=== PATIENT | female | born 1965 | race Caucasian/White ===

== ENCOUNTER → 2016-07-08 | Outpatient (CLI) | payer MEDICARE, MEDICAID ==
[~2016-07-08] MED LIST: ALPR0.5T72 PO; ASP81TEC PO; CATHETER FLUSH 10 ML SYR IV PRN; CYCL10TA9 PO; DIPH1TAB45 PO; HYDR-2997 PO; HYDR-707 PO; LOXA10CA6 PO; MELO-195 PO; METH4TAB PO; NF-SOLIF5T PO; NITR-65 PO; ONDAN4ODT PO; PANT40TA2 PO; PHEN37.555 PO; PHENTERMINE; POTA99TA7 PO; PROP-33; REGADENOSON 0.4 MG/5 ML SYR (LEXISCAN) IV ONE
[2016-07-08 09:25] VITALS: BP 139/62
[2016-07-08 09:32] VITALS: BP 162/77
[2016-07-08 09:34] VITALS: BP 160/78
--- NOTE | 2016-07-09 11:20 | STRESS TEST ---
PROCEDURE PHYSICIAN: MILTON MEEHAN DATE OF PROCEDURE: 07/08/2016 LEXISCAN MYOVIEW STRESS TEST REPORT: INDICATION FOR THE PROCEDURE: Chest pain. BASELINE HEART RATE: 82 BASELINE BLOOD PRESSURE: 139/62 BASELINE EKG: Sinus rhythm with no ischemic changes. IN SUMMARY: The patient was injected with 10.86 mCi of technetium 99 Myoview and the resting images were obtained. Then the patient received 0.4 mg of Lexiscan followed by 27 mCi of technetium 99 Myoview. Throughout the test, there were no EKG changes. The resting and stress images were reviewed and compared in the short axis, horizontal long axis, and vertical long axis views. Review of the images showed breast attenuation affecting the quality of the images. No significant ischemia or infarction was seen. SSS is 3, SDS 2, TID value 1.02. On the gated images, the left ventricle appeared to be normal size with normal contractility. Calculated ejection fraction 66%. IN CONCLUSION: 1. The patient tolerated Lexiscan well. 2. Breast attenuation affecting the quality of the images with no significant ischemia or infarction on SPECT images. 3. Normal left ventricular size with normal contractility. Calculated ejection fraction 66%. Job ID: [id number] Dictated Date: 07/08/2016 17:22:52 Mower Sharpener Date: 07/09/2016 11:17:07 / eli
== END ==
LOC: CARD 07:49
PROVIDERS: ATTEND Internal Medicine Cardiovascular Disease
DX: R07.9 Chest pain, unspecified (principal); R06.09 Other forms of dyspnea; I10 Essential (primary) hypertension; E66.9 Obesity, unspecified
CPT/HCPCS: 78452; 93017

== ENCOUNTER → 2017-07-24 | Outpatient (CLI) | payer MEDICARE ==
[~2017-07-24] MED LIST changes: -CATHETER FLUSH 10 ML SYR IV PRN; -REGADENOSON 0.4 MG/5 ML SYR (LEXISCAN) IV ONE
[2017-07-24 12:18] LABS: ALANINE AMINOTRANSFERASE 19 U/L (0-55); ALBUMIN 3.6 GM/DL (3.2-4.5); ALKALINE PHOSPHATASE 53 U/L (40-136); BILIRUBIN,TOTAL 0.4 MG/DL (0.1-1.0); BUN/CREATININE RATIO 18; CARBON DIOXIDE 28 MMOL/L (21-32); CHLORIDE 105 MMOL/L (98-107); CHOLESTEROL 148 MG/DL (< 200); CREATININE SERUM 0.73 MG/DL (0.60-1.30); GFR ESTIMATED > 60; GLUCOSE 87 MG/DL (70-105); HDL CHOLESTEROL 51 MG/DL (40-60); POTASSIUM 4.2 MMOL/L (3.6-5.0); SODIUM 135 MMOL/L (135-145); TOTAL PROTEIN 7.2 GM/DL (6.4-8.2); TRIGLYCERIDES 73 MG/DL (<150); VLDL CHOLESTEROL 15 MG/DL (5-40)
== END ==
LOC: LAB 11:38
PROVIDERS: ATTEND Physician Assistant
DX: R07.89 Other chest pain (principal); R06.09 Other forms of dyspnea; I10 Essential (primary) hypertension; E66.9 Obesity, unspecified
CPT/HCPCS: 36415; 80053; 80061

== ENCOUNTER → 2020-08-01 | Outpatient (CLI) | payer MEDICARE ==
--- NOTE | 2020-08-01 16:46 | Diagnostic Imaging Report ---
INDICATION: Right knee pain for 3 days. TIME OF EXAM: 2:55 PM Three views of the right knee were obtained. There is tricompartmental degenerative change with joint space narrowing and marginal spurring, most marked involving the patellofemoral joint. No fractures are identified. There is some chondrocalcinosis of the medial compartment. There is a subchondral cyst in the proximal tibia which may be degenerative. There is a joint effusion present. No fractures are seen. IMPRESSION: Degenerative changes and joint effusion. No acute bony abnormality is detected. Dictated by: Dictated on workstation # [id number]
== END ==
LOC: RAD FS 14:35
PROVIDERS: ATTEND Family Medicine
DX: M17.11 Unilateral primary osteoarthritis, right knee (principal)
CPT/HCPCS: 73562

== ENCOUNTER → 2021-02-12 | Outpatient (CLI) | payer MEDICARE | LOC: CARD 08:39 | PROVIDERS: ATTEND Internal Medicine Cardiovascular Disease | DX: I07.1 Rheumatic tricuspid insufficiency (principal); I11.9 Hypertensive heart disease without heart failure; I25.10 Atherosclerotic heart disease of native coronary artery without angina pectoris | CPT/HCPCS: 93306 ==

== ENCOUNTER → 2021-02-14 | Outpatient (CLI) | payer MEDICARE ==
[~2021-02-14] VITALS: Ht 170 cm; Wt 109.0 kg
[~2021-02-14] MED LIST changes: +CATHETER FLUSH 10 ML SYR IV PRN; +REGADENOSON 0.4 MG/5 ML SYR (LEXISCAN) IV ONE
[2021-02-14 09:05] VITALS: BP 151/73
--- NOTE | 2021-02-14 12:09 | Cardiology Stress Test Report ---
Stress Test Report Date of Procedure/Referring: Date of Procedure: Feb 14, 2021 PCP Milton Mckeon MD Admitting Physician Epifanio Larson MD Indications: HTN Baseline Heart Rate: 77 Baseline Blood Pressure: Blood Pressure Systolic: 151 Blood Pressure Diastolic: 73 Baseline Vitals Vital Signs Date Time Temp Pulse Resp B/P (MAP) Pulse Ox O2 Delivery O2 Flow Rate FiO2 02/14/21 09:05 77 151/73 (99) 99 Baseline EKG: Baseline EKG: NSR Summary After explaining the procedure to the patient, she signed a consent and then brought to the stress nuclear laboratory. Patient received 0.4 mg Lexiscan for stress test, ECG, heart rate and blood pressure were monitored continuously. Resting and stress dose of radio tracer were injected, imaging was acquired and reviewed in short axis, horizontal long axis and vertical long axis views. TID: 1.03 SSS: 0 SDS: 0 EF: 55 1. Patient tolerated Lexiscan well 2. Breast attenuation affecting the quality of the images, there is decreased uptake involving the whole anterior wall anterior apex with mild reversibility, stress score is 0. Questionable ischemia involving the anterior wall and anterior apex 3. Normal left ventricular size, ejection fraction 55% MILTON MCKEON MD Feb 14, 2021 12:09
== END ==
LOC: CARD 08:00
PROVIDERS: ATTEND Internal Medicine Cardiovascular Disease
DX: I10 Essential (primary) hypertension (principal); I25.10 Atherosclerotic heart disease of native coronary artery without angina pectoris
CPT/HCPCS: 78452; 93017; A9502

== ENCOUNTER 2021-02-21 06:52 | Day surgery (SDC) | payer MEDICARE ==
[~2021-02-21] VITALS: Ht 170 cm; Wt 107.0 kg
[2021-02-21] VITALS (12 sets, daily range): BP systolic 130–160; BP diastolic 79–98
[~2021-02-21 06:52] MED LIST changes: -CATHETER FLUSH 10 ML SYR IV PRN; -REGADENOSON 0.4 MG/5 ML SYR (LEXISCAN) IV ONE
[2021-02-21] MEDS ORDERED: LIDOCAINE 1% INJ 20 ML 20 ML VIAL ONE (07:06)
[2021-02-21] MEDS ORDERED: HEParin (CATH LAB) 2,000 ML IV ONE (07:07)
[2021-02-21] MEDS ORDERED: NS IV 1000 ML 1,000 ML ONE (07:07)
[2021-02-21] MEDS ORDERED: NS IV 1000 ML 1,000 ML IV SCH ×2 (07:15→09:00)
[2021-02-21] MEDS ORDERED: fentaNYL INJ 100 MCG/2 ML AMP ONE ×2 (07:34→11:34)
[2021-02-21] MEDS ORDERED: MIDAZOLAM 5 MG/5 ML (VERSED) VIAL ONE (07:34)
[2021-02-21 07:39] LABS: HEMATOCRIT 42 % (35-52); HEMOGLOBIN 13.4 g/dL (11.5-16.0); MEAN CORPUSCULAR HEMOGLOBIN 30 pg (25-34); MEAN CORPUSCULAR HGB CONC 32 g/dL (32-36); MEAN CORPUSCULAR VOLUME 93 fL (80-99); MEAN PLATELET VOLUME 10.9 fL (9.0-12.2); PLATELET COUNT 304 10^3/uL (130-400); WHITE BLOOD COUNT 6.5 10^3/uL (4.3-11.0)
[2021-02-21] MEDS ORDERED: TRAM50TA3 PO (07:39)
[2021-02-21] MEDS ORDERED: MULT-1136 PO (07:39)
[2021-02-21] MEDS ORDERED: LISI10TA25 PO (07:39)
[2021-02-21] MEDS ORDERED: ASPI-1238 PO (07:39)
[2021-02-21] MEDS ORDERED: PANT40TA52 PO (07:39)
[2021-02-21] MEDS ORDERED: CYCL10TA9 PO (07:39)
[2021-02-21] MEDS ORDERED: IBUP-1780 PO (07:39)
[2021-02-21] MEDS ORDERED: ACET325T38 PO (07:39)
[2021-02-21 07:44] LABS: BILIRUBIN,URINE NEGATIVE (NEGATIVE); CLARITY,URINE CLEAR; COLOR,URINE YELLOW; GLUCOSE, URINE (UA) NEGATIVE (NEGATIVE); KETONES,URINE NEGATIVE (NEGATIVE); LEUKOCYTE ESTERASE ,URINE NEGATIVE (NEGATIVE); NITRITE,URINE NEGATIVE (NEGATIVE); PROTEIN,URINE NEGATIVE (NEGATIVE)
[2021-02-21 07:47] LABS: RBC,URINE 0-2 /HPF; WBC,URINE 0-2 /HPF
[2021-02-21 07:48] LABS: AMORPHOUS SEDIMENT,UR RARE AMOR URATES /LPF; BACTERIA,URINE NEGATIVE /HPF; SQUAMOUS EPITHELIAL CELL,UR 0-2 /HPF
--- NOTE | 2021-02-21 07:49 | Diagnostic Imaging Report ---
Indication: Chest pain with abnormal stress test. Comparison with 07/08/2012. FINDINGS: Portable chest show the lungs to be well-aerated and clear. No pneumothorax or pleural effusion. No bony abnormalities. IMPRESSION: Normal portable chest. Dictated by: Dictated on workstation # [id number]
[2021-02-21 07:56] LABS: INR 0.9 (0.8-1.4)
[2021-02-21 08:00] LABS: ALBUMIN 3.6 GM/DL (3.2-4.5); BILIRUBIN,TOTAL 0.3 MG/DL (0.1-1.0); CALCIUM 9.2 MG/DL (8.5-10.1); CREATININE SERUM 0.73 MG/DL (0.60-1.30); POTASSIUM 3.6 MMOL/L (3.6-5.0); TOTAL PROTEIN 7.6 GM/DL (6.4-8.2)
--- NOTE | 2021-02-21 08:56 | Conscious Sedation/ASA ---
Conscious Sedation Pre-Proced Time 08:00 ASA Score 3 For ASA 3 and 4: Consider anesthesia and medical clearance. Also, for patients with a history of failed moderate sedation consider anesthesia. Airway Lungs Heart ASA score ASA 1: a normal healthy patient ASA 2: a patient with a mild systemic disease (mid diabetes, controlled hypertension, obesity x ASA 3: a patient with a severe systemic disease that limits activity (angina, COPD, prior Myocardial infarction) ASA 4: a patient with an incapacitating disease that is a constant threat to life (CHF, renal failure) ASA 5: a moribund patient not expected to survive 24 hrs. (ruptured aneurysm) ASA 6: a declared brain- patient whose organs are being harvested. For emergent operations, add the letter E after the classification Mallampati Classification Grade 3 Sedation Plan Analgesia, Amnesia, Plan communicated to team members, Discussed options with patient/fam, Discussed risks with patient/fam The patient is an appropriate candidate to undergo the planned procedure, sedation, and anesthesia. The patient immediately re-assessed prior to indication. MILTON MEEHAN MD Feb 21, 2021 08:56
--- NOTE | 2021-02-21 08:58 | Discharge Inst-Post CATH ---
Discharge Inst-CATH/EP Problems Reviewed?: Yes Post Cardiac Cath/EP D/C Inst Follow Up/Plan Appointment with Dr. Mckeno's office in 2 to 4 weeks <b>CARDIAC CATH/EP PROCEDURE DISCHARGE INSTRUCTIONS</b> ACTIVITY * Go Home directly and rest. * Limit activity of the leg (or wrist if it was used) for 7 days including aer obics, swimming, jogging, bicycling, etc. * Restrict stair-climbing for 7 days if possible, if not, climb up with your non-cath leg, then bring together on the same step. * Avoid lifting, pushing, pulling or excessive movement of the affected extremi ty for 7 days. * Customary sexual activity may be resumed after 2 days-use caution not to use a position that strains or causes pain to the affected extremity. * No driving for 24 hours. * NO SMOKING. * Avoid straining for bowel movements for 7 days. * Gentle walking on level ground is allowed. * Returning to work will depend on the type of procedure and the results. Your doctor will discuss this with you. CALL YOUR DOCTOR FOR ANY OF THE FOLLOWING: *If bleeding from the puncture site occurs- Apply gentle pressure to site with clean cloth and call your doctor or EMS. * If a knot or lump forms under the skin, increases in size, or causes pain. * If bruising appears to be worsening or moving further down your leg instead of disappearing. * Temperature above 101 F. CARE OF YOUR GROIN INCISION; * Bruising or purple discoloration of the skin near the puncture site is common. * You may shower only, no bathtub bathing for 5 days. Be careful to avoid slipping as your leg may feel stiff. * If a closure device was used on your femoral artery, please see the attached guide regarding care of the device and your leg. * Leave dressing on FOR 24 hours. CARE OF YOUR WRIST INCISION; * Bruising or purple discoloration of the skin near the puncture site is common. * You may shower. * DO NOT submerge wrist. * Leave dressing on FOR 24 hours. MILTON MCKEON MD Feb 21, 2021 08:58
[2021-02-21] MEDS ORDERED: PATIENT MAY USE OWN MEDS, ALL PO SCH (09:00)
--- NOTE | 2021-02-21 09:19 | Cardiac Cath Report ---
Cardiac Cath Report Physician (s)/Sap Payroll Consultant (s) Physician MILTON MEEHAN MD Pre-Procedure Diagnosis Pre-Procedure Diagnosis: Coronary artery disease Post-Procedure Note Procedure Start Date: Feb 21, 2021 Name of Procedure: Left heart catheterization Findings/Procedure Note PROCEDURE NOTE: 55-year-old lady with hypertension, hyperlipidemia, had an abnormal stress test, scheduled for cardiac catheterization possible PTCA. After explaining the procedure to the patient, all pros and cons were explained, all questions were answered. The patient signed the consent and then she was placed on the cardiac catheterization laboratory. Groin was prepped SL fashion local anesthesia was used. Sheath placed in the Rt Femoral artery. Shelli right and left catheter were used to access the coronary system. JR catheter was advanced to the left ventricular cavity, pressure was measured, no left ventriculogram was done At the end of the procedure the sheath was removed. Closure device was deployed FINDINGS: Hemodynamics LV 144/15, end-diastolic pressure of 15 Aorta 142/73 mean of 101 ANATOMY: Left Main is free of obstructive disease Left Anterior Descending is mildly tortuous with mild disease nonobstructive disease Left Circumflex is slightly tortuous with mild disease nonobstructive disease Right Coronary Artery has mild disease at the midportion nonobstructive disease LV Gram was not done, pressure was measured CONCLUSION: 1. Mild coronary artery disease nonobstructive disease 2. Normal left ventricular end-diastolic pressure DISCUSSION AND RECOMMENDATION: Patient had an abnormal stress test probably due to extracardiac attenuation, mild coronary artery disease per cardiac catheterization, medical therapy is recommended no intervention is needed Anesthesia Type: Conscious Sedation Estimated blood loss (mL): 15 ml Contrast Amount: 28 ml Total Radiation Dose: 358 mGy Post-Procedure Diagnosis Post-operative diagnosis: Chest pain Coronary artery disease Hypertension Hyperlipidemia MILTON MEEHAN MD Feb 21, 2021 09:19
[2021-02-21] MEDS ORDERED: fentaNYL INJ 100 MCG/2 ML AMP IVP PRN (11:30)
== END 2021-02-21 13:35 | disposition home or self-care (01) ==
LOC: CATH 06:52 → SDC 09:15 → CATH 13:35
PROVIDERS: ATTEND Internal Medicine Cardiovascular Disease
DX: I25.10 Atherosclerotic heart disease of native coronary artery without angina pectoris (principal); I10 Essential (primary) hypertension; E78.2 Mixed hyperlipidemia; E66.9 Obesity, unspecified; I65.23 Occlusion and stenosis of bilateral carotid arteries; M19.90 Unspecified osteoarthritis, unspecified site; I07.1 Rheumatic tricuspid insufficiency; R06.83 Snoring; Z79.82 Long term (current) use of aspirin; Z68.37 Body mass index [BMI] 37.0-37.9, adult
CPT/HCPCS: 71045; 80053; 80061; 81000; 85027; 85610; 85730; 87081; 93458; C1760; C1894; 36415

== ENCOUNTER 2021-02-23 12:12 | Emergency (ER) | payer MEDICARE ==
[~2021-02-23] VITALS: Ht 170.2 cm; Wt 107.5 kg
[~2021-02-23 12:12] MED LIST changes: +ACET325T38 PO; +ASPI-1238 PO; +IBUP-1780 PO; +LISI10TA25 PO; +MULT-1136 PO; +PANT40TA52 PO; +TRAM50TA3 PO
--- NOTE | 2021-02-23 13:00 | ED Cardiac General ---
History of Present Illness General Stated Complaint: LEG PAIN AFTER HEART CATH Source: patient Exam Limitations: no limitations History of Present Illness Date Seen by Provider: Feb 23, 2021 Time Seen by Provider: 12:45 Initial Comments Patient to the ER by private conveyance with her significant other and chief complaint that she had a heart cath [address] Mckeon in her right femoral and she has had increasing swelling and pain. She says she had a heart cath 8 years ago that was noninterventional and did not have near as much trouble with it. She says she is never had such pain in her life. She took tramadol and Tylenol which brought the edge off of her pain. She has been getting around taking care of her self. She is on aspirin but no blood thinners. She says this heart cath was not interventional. She is not on blood thinners. She feels pain swelling in her right inner thigh as well as some intermittent tingling and numbness just distal to that in her right leg. She has not removed the dressing yet. No discharge from the wound, fever, chills, nausea, chest pain, shortness of air Allergies and Home Medications Allergies Coded Allergies: No Known Drug Allergies (Unverified , 10/10/08) Patient Home Medication List Home Medication List Reviewed: Yes Acetaminophen (Tylenol) 325 Mg Tablet, 650 MG PO Q6H PRN for PAIN-MILD (1-4), (Reported) Entered as Reported by: MUMTAZ JACK on 02/21/21738 Aspirin (Aspirin EC) 81 Mg Tablet.dr, 81 MG PO DAILY, (Reported) Entered as Reported by: MUMTAZ JACK on 02/21/21738 Cyclobenzaprine HCl (Cyclobenzaprine HCl) 10 Mg Tablet, 10 MG PO HS PRN for MUSCLE SPASMS, (Reported) Entered as Reported by: MUMTAZ JACK on 02/21/21738 Ibuprofen (Ibuprofen) 800 Mg Tablet, 800 MG PO Q8H PRN for PAIN-MILD, (Reported) Entered as Reported by: MUMTAZ JACK on 02/21/21738 Lisinopril (Lisinopril) 10 Mg Tablet, 10 MG PO DAILY, (Reported) Entered as Reported by: MUMTAZ JACK on 02/21/21738 Multivitamin (Multivitamin) 1 Each Tablet, 1 EACH PO DAILY, (Reported) Entered as Reported by: MUMTAZ JACK on 02/21/2139 Pantoprazole Sodium (Pantoprazole Sodium) 40 Mg Tablet.dr, 40 MG PO DAILY, ( Reported) Entered as Reported by: MUMTAZ JACK on 02/21/21 0739 Tramadol HCl (Tramadol HCl) 50 Mg Tablet, 50 MG PO QID, (Reported) Entered as Reported by: MUMTAZ JACK on 02/21/21738 Discontinued Medications Alprazolam (Alprazolam) 0.5 Mg Tab.rapdis, 0.5 MG PO DAILY, (Reported) Discontinued Reason: No Longer Taking Entered as Reported by: ONIEL MYRICK on 03/30/09 1910 Aspirin (Aspirin Ec 81 Mg) 81 Mg Tabec, 81 MG PO DAILY, (Reported) Discontinued Reason: No Longer Taking Entered as Reported by: RAMANDEEP AGUILAR on 07/08/12 1531 Cyclobenzaprine Hcl (Cyclobenzaprine Hcl) 10 Mg Tablet, 10 MG PO DAILY, (Report ed) Discontinued Reason: No Longer Taking Entered as Reported by: KEHINDE ROBERTS on 05/26/11 1547 Hydrocodone Bit/Acetaminophen (Lortab 7.5/500 Tablet) 1 Tab Tablet, 1 TAB PO TID, (Reported) Discontinued Reason: No Longer Taking Entered as Reported by: RAMANDEEP AGUILAR on 07/08/12 1532 Meloxicam (Meloxicam) 15 Mg Tablet, 15 MG PO DAILY, (Reported) Discontinued Reason: No Longer Taking Entered as Reported by: CORRINE CALABRESE on 07/08/12 1039 Pantoprazole Sodium (Protonix) 40 Mg Tablet.dr, 40 MG PO DAILY, (Reported) Discontinued Reason: No Longer Taking Entered as Reported by: ADILSON ATKINS on 04/25/15 1519 Solifenacin Succinate (Vesicare) 5 Mg Tablet, Unknown Dose PO, (Reported) Discontinued Reason: No Longer Taking Entered as Reported by: ADILSON ATKINS on 04/25/15 1519 Review of Systems Review of Systems Constitutional: No chills, No fever EENTM: No Blurred Vision, No Double Vision Respiratory: Denies Cough, Denies Shortness of Air Cardiovascular: Denies Chest Pain, Denies Lightheadedness Gastrointestinal: Denies Constipated, Denies Diarrhea, Denies Nausea Genitourinary: Denies Discharge, Denies Drainage Musculoskeletal: No back pain, No joint pain Psychiatric/Neurological: Denies Anxiety, Denies Depressed All Other Systems Reviewed Negative Unless Noted: Yes Past Gsjfbtf-Ktyuzd-Dfvcii Hx Patient Social History Tobacco Use?: No Use of E-Cig and/or Vaping dev: No Substance use?: No Alcohol Use?: No Immunizations Up To Date Tetanus Booster (TDap): Unknown Seasonal Allergies Seasonal Allergies: No Past Medical History Section, Gallbladder, Orthopedic Reproductive Disorders: No Diverticulosis Arthritis, Chronic Back Pain Anxiety Physical Exam Vital Signs Vital Signs - First Documented 02/23/21 12:46 Temp 36.5 Pulse 67 Resp 26 B/P (MAP) 136/81 (99) Pulse Ox 98 O2 Delivery Room Air Capillary Refill : Height, Weight, BMI Height: 5'7" Weight: 230lbs. oz. 104.998653sb; 37.02 BMI Method:Stated General Appearance: Anxious, Moderate Distress, Obese HEENT: PERRL/EOMI, Pharynx Normal, Moist Mucous Membranes Neck: Full Range of Motion, Normal Inspection Respiratory: No Accessory Muscle Use, No Respiratory Distress Cardiovascular: Regular Rate, Rhythm, No Edema, Normal Peripheral Pulses Gastrointestinal: Non Tender, Soft Extremity: Normal Capillary Refill, No Pedal Edema, Other (Right proximal thigh and groin with ecchymoses, no induration erythema or discharge. The wound is dry clean and dressed. There is a mild amount of swelling right compared to left thigh.) Neurologic/Psychiatric: Alert, Oriented x3, No Motor/Sensory Deficits Skin: Ecchymosis Progress/Results/Core Measures Results/Orders Lab Results Laboratory Tests Test 02/23/21 13:03 02/23/21 14:09 Range/Units White Blood Count 9.4 4.3-11.0 10^3/uL Red Blood Count 3.98 3.80-5.11 10^6/uL Hemoglobin 11.7 11.5-16.0 g/dL Hematocrit 36 35-52 % Mean Corpuscular Volume 91 80-99 fL Mean Corpuscular Hemoglobin 29 25-34 pg Mean Corpuscular Hemoglobin Concent 32 32-36 g/dL Red Cell Distribution Width 13.6 10.0-14.5 % Platelet Count 280 130-400 10^3/uL Mean Platelet Volume 11.0 9.0-12.2 fL Immature Granulocyte % (Auto) 0 % Neutrophils (%) (Auto) 74 42-75 % Lymphocytes (%) (Auto) 18 12-44 % Monocytes (%) (Auto) 7 0-12 % Eosinophils (%) (Auto) 0 0-10 % Basophils (%) (Auto) 1 0-10 % Neutrophils # (Auto) 7.0 1.8-7.8 10^3/uL Lymphocytes # (Auto) 1.7 1.0-4.0 10^3/uL Monocytes # (Auto) 0.6 0.0-1.0 10^3/uL Eosinophils # (Auto) 0.0 0.0-0.3 10^3/uL Basophils # (Auto) 0.1 0.0-0.1 10^3/uL Immature Granulocyte # (Auto) 0.0 0.0-0.1 10^3/uL Sodium Level 139 135-145 MMOL/L Potassium Level 3.3 L 3.6-5.0 MMOL/L Chloride Level 104 98-107 MMOL/L Carbon Dioxide Level 25 21-32 MMOL/L Anion Gap 10 5-14 MMOL/L Blood Urea Nitrogen 8 7-18 MG/DL Creatinine 0.69 0.60-1.30 MG/DL Estimat Glomerular Filtration Rate 89 BUN/Creatinine Ratio 12 Glucose Level 98 70-105 MG/DL Calcium Level 8.8 8.5-10.1 MG/DL Corrected Calcium 9.1 8.5-10.1 MG/DL Total Bilirubin 0.6 0.1-1.0 MG/DL Aspartate Amino Transf (AST/SGOT) 24 5-34 U/L Alanine Aminotransferase (ALT/SGPT) 23 0-55 U/L Alkaline Phosphatase 80 40-136 U/L C-Reactive Protein High Sensitivity 1.88 H 0.00-0.50 MG/DL Total Protein 7.2 6.4-8.2 GM/DL Albumin 3.6 3.2-4.5 GM/DL Urine Color YELLOW Urine Clarity CLEAR Urine pH 6.5 5-9 Urine Specific [place] 1.010 L 1.016-1.022 Urine Protein NEGATIVE NEGATIVE Urine Glucose (UA) NEGATIVE NEGATIVE Urine Ketones 1+ H NEGATIVE Urine Nitrite NEGATIVE NEGATIVE Urine Bilirubin NEGATIVE NEGATIVE Urine Urobilinogen 0.2 < = 1.0 MG/DL Urine Leukocyte Esterase NEGATIVE NEGATIVE Urine RBC (Auto) NEGATIVE NEGATIVE Urine RBC NONE /HPF Urine WBC NONE /HPF Urine Squamous Epithelial Cells 0-2 /HPF Urine Crystals NONE /LPF Urine Bacteria NEGATIVE /HPF Urine Casts NONE /LPF Urine Mucus NEGATIVE /LPF Urine Culture Indicated NO My Orders Orders - CAIT CABALLERO Cbc With Automated Diff (02/23/21 12:56) Comprehensive Metabolic Panel (02/23/21 12:56) Hs C Reactive Protein (02/23/21 12:56) Ua Culture If Indicated (02/23/21 12:56) Ed Iv/Invasive Line Start (02/23/21 12:56) Us Right Low Ext [id number] (02/23/21 13:01) Ed Iv/Invasive Line Start (02/23/21 13:01) Us Right Low Ext [id number] (02/23/21 ) Ed Iv/Invasive Line Start (02/23/21 15:43) Fentanyl Inj (Sublimaze Injection) (02/23/21 16:45) Vital Signs/I&O 02/23/21 12:46 Temp 36.5 Pulse 67 Resp 26 B/P (MAP) 136/81 (99) Pulse Ox 98 O2 Delivery Room Air Progress Progress Note #1: Time: 13:10 Progress Note Discussed the case with Dr. Aguilar and he recommends ultrasound to rule out pseudoaneurysm. We will also check some labs check anemia. We did offer her something for pain but she declined. Progress Note #2: Time: 15:00 Progress Note Nursing staff from the [facility] over to compress the pseudoaneurysm. They will then repeat an ultrasound afterwards. Progress Note #3: Time: 16:37 Progress Note Discussed the case with Dr. Aguilar and the pseudoaneurysm certainly is smaller but not closed. There is some partial thrombus lining the holt. She is req uesting something for pain so we gave her 10mg [place]. Dr. Aguilar has discussed the case with Dr. Mckeon and recommends pain management at home and follow-up by calling Dr. Mckeon first thing in the morning on Friday. Return precautions were given. Diagnostic Imaging Diagonstic Imaging: Ultrasound Plain Films/CT/US/NM/MRI: leg (Right) Comments [facility] [place], [place] NAME: INES GARAY [facility] REC#: [id number] PT STATUS: REG ER : 1965 PHYSICIAN: CAIT CABALLERO MD ADMIT DATE: 02/23/21/ER Draft Date of Exam:02/23/21 US RIGHT LOW EXT [id number] INDICATION: Two days post heart catheterization, bruising and pain, concern for potential pseudoaneurysm. TECHNIQUE: Multiple real time grayscale sonographic images along with duplex Doppler was obtained of the right groin. CORRELATION STUDY: None. FINDINGS: Findings compatible with a pseudoaneurysm at the right groin. This measures approximately 3.3 x 2.2 x 2.5 cm. May be partially thrombosed but approximately half of the pseudoaneurysm fills with vascular flow. There does appear to be a very short but thin neck originating off the common femoral artery. IMPRESSION: Findings positive for pseudoaneurysm of the right groin. Dictated on workstation # [id number] Dict: 02/23/21 1433 Trans: 02/23/21 1457 [facility] [id number] Interpreted by: WILL WALL DO Electronically signed by: Reviewed: Reviewed by Va Diagonstic Imaging: Ultrasound Plain Films/CT/US/NM/MRI: leg (Right proximal) Comments [facility] [place] [place] NAME: INES GARAY [facility] REC#: [id number] PT STATUS: REG ER : 1965 PHYSICIAN: CAIT CABALLERO MD ADMIT DATE: 02/23/21/ER Draft Date of Exam:02/23/21 US RIGHT LOW EXT [id number] INDICATION: Pseudoaneurysm. COMPARISON: Exam is compared with study earlier this same date. FINDINGS: Pseudoaneurysm measures an unchanged 2.7 cm long axis. It has a short but narrow neck. There is some partial thrombus along its holt. It has not substantially changed from prior and remains largely patent. IMPRESSION: Pseudoaneurysm is very similar to earlier, largely patent with a small amount of peripheral thrombus. Dictated on workstation # [id number] Dict: 02/23/21 1618 Trans: 02/23/21 1623 [id number] Interpreted by: DAKSHA CORREA Electronically signed by: Reviewed: Reviewed by Me Departure Impression Primary Impression: Pseudoaneurysm following procedure Disposition: 01 HOME, SELF-CARE Condition: Stable Departure-Patient Inst. Decision time for Depature: 17:24 Referrals: MONSERRAT AMAYA MD (PCP) Primary Care Physician JACK ASENCIO (Family) Primary Care Physician MILTON MCKEON MD Patient Instructions: Cardiac Catheterization Add. Discharge Instructions: You have a pseudoaneurysm that is a side effect of the endovascular catheterization of your heart. It will slowly close off on its own. The problem with it is it causes a lot of pain. I would recommend 1 to 2 tablets of hydrocodone every 6 hours as necessary for pain control. Stay relatively flat for the rest of the evening. Call Dr. Mckeon's office 8:00 in the morning on Friday to set up some follow-up. Return to the ER promptly for chest pain, shortness of air or intractable pain. Zofran 1 tablet every 6 hours as necessary for nausea and/or vomiting Scripts Ondansetron (Ondansetron Odt) 4 Mg Tab.rapdis 4 MG PO Q6H PRN for NAUSEA/VOMITING, #8 TAB 0 Refills Prov: CAIT CABALLERO 02/23/21 Hydrocodone/Acetaminophen (Hydrocodone-Acetamin 7.5-325) 1 Each Tablet 1-2 EACH PO Q6H PRN for PAIN-BREAKTHROUGH, #20 TAB 0 Refills Prov: CAIT CABALLERO 02/23/21 Copy Copies To 1: MILTON MCKEON MD, TITUS J Feb 23, 2021 13:00
[2021-02-23 13:10] LABS: BASOPHILS # (AUTO) 0.1 10^3/uL (0.0-0.1); BASOPHILS % (AUTO) 1 % (0-10); EOSINOPHILS % (AUTO) 0 % (0-10); HEMATOCRIT 36 % (35-52); HEMOGLOBIN 11.7 g/dL (11.5-16.0); LYMPHOCYTES # (AUTO) 1.7 10^3/uL (1.0-4.0); LYMPHOCYTES % (AUTO) 18 % (12-44); MEAN CORPUSCULAR HEMOGLOBIN 29 pg (25-34); MEAN CORPUSCULAR HGB CONC 32 g/dL (32-36); MEAN CORPUSCULAR VOLUME 91 fL (80-99); MONOCYTES # (AUTO) 0.6 10^3/uL (0.0-1.0); MONOCYTES % (AUTO) 7 % (0-12); NEUTROPHILS % (AUTO) 74 % (42-75); PLATELET COUNT 280 10^3/uL (130-400); WHITE BLOOD COUNT 9.4 10^3/uL (4.3-11.0)
[2021-02-23 13:27] LABS: ALBUMIN 3.6 GM/DL (3.2-4.5); POTASSIUM 3.3 MMOL/L (3.6-5.0)
[2021-02-23 13:28] LABS: CALCIUM 8.8 MG/DL (8.5-10.1)
[2021-02-23 13:30] LABS: TOTAL PROTEIN 7.2 GM/DL (6.4-8.2)
[2021-02-23 13:31] LABS: BILIRUBIN,TOTAL 0.6 MG/DL (0.1-1.0)
[2021-02-23 13:33] LABS: CREATININE SERUM 0.69 MG/DL (0.60-1.30)
[2021-02-23 14:19] LABS: BILIRUBIN,URINE NEGATIVE (NEGATIVE); CLARITY,URINE CLEAR; COLOR,URINE YELLOW; GLUCOSE, URINE (UA) NEGATIVE (NEGATIVE); KETONES,URINE 1+ (NEGATIVE); LEUKOCYTE ESTERASE ,URINE NEGATIVE (NEGATIVE); NITRITE,URINE NEGATIVE (NEGATIVE); PH,URINE 6.5 (5-9); PROTEIN,URINE NEGATIVE (NEGATIVE)
[2021-02-23 14:28] LABS: BACTERIA,URINE NEGATIVE /HPF; SQUAMOUS EPITHELIAL CELL,UR 0-2 /HPF
--- NOTE | 2021-02-23 14:57 | Diagnostic Imaging Report ---
INDICATION: Two days post heart catheterization, bruising and pain, concern for potential pseudoaneurysm. TECHNIQUE: Multiple real time grayscale sonographic images along with duplex Doppler was obtained of the right groin. CORRELATION STUDY: None. FINDINGS: Findings compatible with a pseudoaneurysm at the right groin. This measures approximately 3.3 x 2.2 x 2.5 cm. May be partially thrombosed but approximately half of the pseudoaneurysm fills with vascular flow. There does appear to be a very short but thin neck originating off the common femoral artery. IMPRESSION: Findings positive for pseudoaneurysm of the right groin. Dictated by: Dictated on workstation # [id number]
--- NOTE | 2021-02-23 16:24 | Diagnostic Imaging Report ---
INDICATION: Pseudoaneurysm. COMPARISON: Exam is compared with study earlier this same date. FINDINGS: Pseudoaneurysm measures an unchanged 2.7 cm long axis. It has a short but narrow neck. There is some partial thrombus along its holt. It has not substantially changed from prior and remains largely patent. IMPRESSION: Pseudoaneurysm is very similar to earlier, largely patent with a small amount of peripheral thrombus. Dictated by: Dictated on workstation # [id number]
[2021-02-23] MEDS ORDERED: fentaNYL INJ 100 MCG/2 ML AMP IVP ONE (16:45)
[2021-02-23] MEDS ORDERED: HYDR-3817 PO (17:27)
[2021-02-23] MEDS ORDERED: ONDA4TAB11 PO (17:27)
[2021-02-23] MEDS ORDERED: HYDROcodone/APAP 5 MG/325 MG (LORTAB) TAB PO ONE (17:30)
[2021-02-23 17:50] VITALS: BP 107/80
== END 2021-02-23 17:50 | disposition home or self-care (01) ==
LOC: EDUNIT# 12:12 → ER 12:13
DX: I25.3 Aneurysm of heart (principal); F41.9 Anxiety disorder, unspecified; E66.9 Obesity, unspecified; Z68.37 Body mass index [BMI] 37.0-37.9, adult; Z79.82 Long term (current) use of aspirin; Z79.899 Other long term (current) drug therapy
CPT/HCPCS: 36415; 80053; 81000; 85025; 86141; 93926

== ENCOUNTER → 2021-03-01 | Outpatient (CLI) | payer MEDICARE ==
[~2021-03-01] MED LIST changes: +HYDR-3817 PO; +ONDA4TAB11 PO
--- NOTE | 2021-03-01 16:38 | Diagnostic Imaging Report ---
US RIGHT LOW EXT [id number] [id number] INDICATION: Pseudoaneurysm surveillance COMPARISON: 02/23/2021 TECHNIQUE: Grayscale, color Doppler and spectral Doppler imaging of the right groin was performed. FINDINGS: There remains a pseudoaneurysm within the right groin arising from the common femoral artery. Both to and fro flow is seen within the aneurysm with a patent neck. A small amount of thrombus is present around the margins. Overall the size is similar measuring approximately 2.7 cm. IMPRESSION: The neck of the pseudoaneurysm remains patent with the amount of peripheral thrombus having mildly increased since prior exam. Dictated by: Dictated on workstation # [id number]
== END ==
LOC: RAD 09:32
PROVIDERS: ATTEND Internal Medicine Cardiovascular Disease
DX: I72.4 Aneurysm of artery of lower extremity (principal)
CPT/HCPCS: 76881

== ENCOUNTER 2021-03-24 11:28 | Emergency (ER) | payer MEDICAID, MEDICARE ==
[~2021-03-24] VITALS: Ht 170.2 cm; Wt 107.5 kg
[~2021-03-24 11:28] MED LIST changes: +CYCL10TA25 PO
[2021-03-24 11:30] VITALS: BP 131/91
[2021-03-24] MEDS ORDERED: ONDANSETRON 4 MG/2 ML (SDV) Z0FRAN IVP ONE (11:45)
[2021-03-24] MEDS ORDERED: fentaNYL INJ 100 MCG/2 ML AMP IVP ONE (11:45)
--- NOTE | 2021-03-24 11:48 | ED General ---
General Stated Complaint: HEART CATH 02/21, SOB, COUGH, CP, R LEG BURNING Source of Information: Patient Exam Limitations: No Limitations (SPENCER FIERRO APRN) History of Present Illness Date Seen by Provider: Mar 24, 2021 Time Seen by Provider: 11:47 Initial Comments To ER with multiple complaints. She had a cardiac catheterization here by Dr. Mckeon access via the right groin 02/21/2021 which showed minimal coronary disease without intervention. This was complicated by a pseudoaneurysm of the right femoral artery. She was referred to Dr. Smith in [place] for closure of that which was presumably done with a thrombin injection a few days later around the first of this month. Today she reports that since the heart cath she has been having some pain in the left upper abdomen lower chest, shortness of breath--for about 2 weeks. She has burning and pain to the medial aspect of the right lower leg and severe pain in her mid back. For the past year she has been sleeping in a recliner due to to "a bad back". She describes the pain as burning and keeping her from sleeping. She states that when she eats her left upper abdominal and lower chest pain is worsened as is her shortness of breath. She becomes tearful during conversation and reports that she is also very anxious. She has had vomiting in the mornings but no fevers. She has not yet vaccinated against Covid. Timing/Duration: Other (3 weeks duration) Severity: Moderate Associated Systoms: Chest Pain, Cough; No Fever/Chills, No Headaches; Nausea/Vomiting (SPENCER FIERRO APRN) Allergies and Home Medications Allergies Coded Allergies: No Known Drug Allergies (Unverified , 10/10/08) Patient Home Medication List Home Medication List Reviewed: Yes (SPENCER FIERRO APRN) Acetaminophen (Tylenol) 325 Mg Tablet, 650 MG PO Q6H PRN for PAIN-MILD (1-4), (Reported) Entered as Reported by: MUMTAZ JACK on 02/21/21738 Aspirin (Aspirin EC) 81 Mg Tablet.dr, 81 MG PO DAILY, (Reported) Entered as Reported by: MUMTAZ JACK on 02/21/21738 Cyclobenzaprine HCl (Cyclobenzaprine HCl) 10 Mg Tablet, 10 MG PO HS PRN for MUSCLE SPASMS, (Reported) Entered as Reported by: MUMTAZ JACK on 02/21/21738 Gabapentin (Gabapentin) 100 Mg Capsule, 200 MG PO Q8H Prescribed by: SPENCER FIERRO on 03/24/211449 Last Action: New Order Hydrocodone/Acetaminophen (Hydrocodone-Acetamin 7.5-325) 1 Each Tablet, 1-2 EACH PO Q6H PRN for PAIN-BREAKTHROUGH Prescribed by: CAIT CABALLERO on 02/23/21 172 Ibuprofen (Ibuprofen) 800 Mg Tablet, 800 MG PO Q8H PRN for PAIN-MILD, (Reported) Entered as Reported by: MUMTAZ JACK on 02/21/21738 Lisinopril (Lisinopril) 10 Mg Tablet, 10 MG PO DAILY, (Reported) Entered as Reported by: MUMTAZ JACK on 02/21/21738 Multivitamin (Multivitamin) 1 Each Tablet, 1 EACH PO DAILY, (Reported) Entered as Reported by: MUMTAZ JACK on 02/21/21738 Ondansetron (Ondansetron Odt) 4 Mg Tab.rapdis, 4 MG PO Q6H PRN for NAUSEA/VOM ITING Prescribed by: CAIT CABALLERO on 02/23/211726 Pantoprazole Sodium (Pantoprazole Sodium) 40 Mg Tablet.dr, 40 MG PO DAILY, (Reported) Entered as Reported by: MUMTAZ JACK on 02/21/21738 Potassium Chloride (Potassium Chloride) 20 Meq Tablet.er, 20 MEQ PO DAILY Prescribed by: SPENCER FIERRO on 03/24/211449 Last Action: New Order Prednisone (Prednisone) 20 Mg Tab, 40 MG PO DAILY Prescribed by: SPENCER FIERRO on 03/24/211449 Last Action: New Order Tramadol HCl (Tramadol HCl) 50 Mg Tablet, 50 MG PO QID, (Reported) Entered as Reported by: MUMTAZ JACK on 02/21/21738 Review of Systems Review of Systems Constitutional: see HPI; No chills, No fever EENTM: see HPI Respiratory: see HPI, cough, short of breath Cardiovascular: see HPI, chest pain Genitourinary: no symptoms reported Musculoskeletal: no symptoms reported Skin: no symptoms reported Psychiatric/Neurological: No Symptoms Reported (SPENCER FIERRO APRN) Past Kxjzukb-Oesoeq-Fgqsjj Hx Immunizations Up To Date Tetanus Booster (TDap): Unknown (SPENCER FIERRO APRN) Seasonal Allergies Seasonal Allergies: No (SPENCER FIERRO APRN) Past Medical History Surgery/Hospitalization HX: SX: 2 C-SECTIONS, GALLBLADDER, LEFT KNEE REPLACEMENT Section, Gallbladder, Orthopedic Reproductive Disorders: No Diverticulosis Arthritis, Chronic Back Pain Anxiety (SPENCER FIERRO APRN) Physical Exam Vital Signs Vital Signs - First Documented 03/24/21 11:30 Temp 36.8 Pulse 84 Resp 20 B/P (MAP) 131/91 (104) Pulse Ox 99 O2 Delivery Room Air (ANDREY FORTE MD) Vital Signs Capillary Refill : (SPENCER FIERRO APRN) Height, Weight, BMI Height: 5'7" Weight: 230lbs. oz. 104.911754nk; 37.00 BMI Method:Stated General Appearance: No Apparent Distress, WD/WN, Anxious (Tearful), Obese Eyes: Bilateral Eye Normal Inspection, Bilateral Eye PERRL Neck: Full Range of Motion, Normal Inspection Respiratory: Normal Breath Sounds, No Accessory Muscle Use, No Respiratory Distress, Other (100% room air. ) Cardiovascular: Regular Rate, Rhythm, Normal Peripheral Pulses Gastrointestinal: Non Tender, Soft Extremity: Normal Capillary Refill, Normal Inspection, Other (She has a palpable +1 bilateral dorsalis pedis pulse. Each foot is warm and well- perfused. The medial calf where she complains of burning pain has a normal appearance. The right anterior groin at the puncture site for cardiac catheterization reveals no palpable mass, no pulsatile mass and the overlying skin is normal without ecchymosis or erythema to suggest any infection.) Neurologic/Psychiatric: Alert, Oriented x3 (SPENCER FIERRO APRN) Progress/Results/Core Measures Suspected Sepsis SIRS Temperature: Pulse: Respiratory Rate: Laboratory Tests 03/24/21 11:55: White Blood Count 6.0 Blood Pressure / Mean: Laboratory Tests 03/24/21 11:55: Creatinine 0.72, Platelet Count 244, Total Bilirubin 0.6 (SPENCER FIERRO APRN) Results/Orders Lab Results Laboratory Tests Test 03/24/21 11:36 03/24/21 11:42 03/24/21 11:55 Range/Units Urine Color YELLOW Urine Clarity CLEAR Urine pH 6.0 5-9 Urine Specific [place] <=1.005 1.016-1.022 Urine Protein NEGATIVE NEGATIVE Urine Glucose (UA) NEGATIVE NEGATIVE Urine Ketones NEGATIVE NEGATIVE Urine Nitrite NEGATIVE NEGATIVE Urine Bilirubin NEGATIVE NEGATIVE Urine Urobilinogen 0.2 < = 1.0 MG/DL Urine Leukocyte Esterase NEGATIVE NEGATIVE Urine RBC (Auto) NEGATIVE NEGATIVE Urine RBC NONE /HPF Urine WBC NONE /HPF Urine Squamous Epithelial Cells RARE /HPF Urine Crystals NONE /LPF Urine Bacteria NEGATIVE /HPF Urine Casts NONE /LPF Urine Mucus NEGATIVE /LPF Urine Culture Indicated NO SARS-CoV-2 RNA (RT-PCR) Detected H Not Detecte White Blood Count 6.0 4.3-11.0 10^3/uL Red Blood Count 4.54 3.80-5.11 10^6/uL Hemoglobin 13.2 11.5-16.0 g/dL Hematocrit 42 35-52 % Mean Corpuscular Volume 92 80-99 fL Mean Corpuscular Hemoglobin 29 25-34 pg Mean Corpuscular Hemoglobin Concent 32 32-36 g/dL Red Cell Distribution Width 13.2 10.0-14.5 % Platelet Count 244 130-400 10^3/uL Mean Platelet Volume 11.4 9.0-12.2 fL Immature Granulocyte % (Auto) 0 % Neutrophils (%) (Auto) 70 42-75 % Lymphocytes (%) (Auto) 22 12-44 % Monocytes (%) (Auto) 7 0-12 % Eosinophils (%) (Auto) 0 0-10 % Basophils (%) (Auto) 0 0-10 % Neutrophils # (Auto) 4.2 1.8-7.8 10^3/uL Lymphocytes # (Auto) 1.3 1.0-4.0 10^3/uL Monocytes # (Auto) 0.4 0.0-1.0 10^3/uL Eosinophils # (Auto) 0.0 0.0-0.3 10^3/uL Basophils # (Auto) 0.0 0.0-0.1 10^3/uL Immature Granulocyte # (Auto) 0.0 0.0-0.1 10^3/uL D-Dimer 0.71 H 0.00-0.49 UG/ML Sodium Level 140 135-145 MMOL/L Potassium Level 2.8 L 3.6-5.0 MMOL/L Chloride Level 101 98-107 MMOL/L Carbon Dioxide Level 27 21-32 MMOL/L Anion Gap 12 5-14 MMOL/L Blood Urea Nitrogen 4 L 7-18 MG/DL Creatinine 0.72 0.60-1.30 MG/DL Estimat Glomerular Filtration Rate 85 BUN/Creatinine Ratio 6 Glucose Level 97 70-105 MG/DL Calcium Level 8.7 8.5-10.1 MG/DL Corrected Calcium 8.9 8.5-10.1 MG/DL Total Bilirubin 0.6 0.1-1.0 MG/DL Aspartate Amino Transf (AST/SGOT) 29 5-34 U/L Alanine Aminotransferase (ALT/SGPT) 19 0-55 U/L Alkaline Phosphatase 208 H 40-136 U/L C-Reactive Protein High Sensitivity 1.69 H 0.00-0.50 MG/DL B-Type Natriuretic Peptide 36.0 <100.0 PG/ML Total Protein 7.7 6.4-8.2 GM/DL Albumin 3.8 3.2-4.5 GM/DL (ANDREY FORTE MD) Medications Given in ED Current Medications Medications Dose Ordered Sig/[place] Route Start Time Stop Time Status Last Admin Dose Admin Iohexol 100 ml ONCE ONCE IV 03/24/21 12:00 03/24/21 12:01 DC 03/24/21 13:06 83 ML Ketorolac Tromethamine 15 mg ONCE ONCE IVP 03/24/21 12:00 03/24/21 12:01 DC 03/24/21 12:06 15 MG Lorazepam 0.5 mg ONCE PRN IVP 03/24/21 12:00 03/24/21 14:33 DC 03/24/21 12:06 0.5 MG Ondansetron HCl 4 mg ONCE ONCE IVP 03/24/21 11:45 03/24/21 11:46 DC 03/24/21 12:06 4 MG Potassium Chloride 40 meq ONCE ONCE PO 03/24/21 12:45 03/24/21 12:46 DC 03/24/21 13:12 40 MEQ Potassium Chloride 50 ml @ 50 mls/hr ONCE ONCE IV 03/24/21 12:45 03/24/21 13:44 DC 03/24/21 13:13 50 MLS/HR Sodium Chloride 100 ml ONCE ONCE IV 03/24/21 12:00 03/24/21 12:01 DC 03/24/21 13:06 80 ML (ANDREY FORTE MD) Vital Signs/I&O 03/24/21 11:30 Temp 36.8 Pulse 84 Resp 20 B/P (MAP) 131/91 (104) Pulse Ox 99 O2 Delivery Room Air (ANDREY FORTE MD) Vital Signs/I&O Capillary Refill : (SPENCER FIERRO APRN) Departure Communication (Admissions) NAME: [facility] REC#: [id number] PT STATUS: REG ER : 1965 PHYSICIAN: SPENCER FIERRO APRN ADMIT DATE: 03/24/21/ER Draft Date of Exam:03/24/21 CT ANGIO CHEST W PROCEDURE: CT angiography of the chest with contrast. TECHNIQUE: Multiple contiguous axial images were obtained through the chest after uneventful bolus administration of intravenous contrast. 3D reconstructed CTA MIP acquisitions were also performed. Auto Exposure Controls were utilized during the CT exam to meet ALARA standards for radiation dose reduction. INDICATION: Short of air, epigastric pain recent heart catheterization in January. CTA chest from 03/24/2021 COMPARISON: None. FINDINGS: There are no central or proximal segmental pulmonary emboli. The thoracic aorta unremarkable for acute abnormality with mild atherosclerotic disease noted. There is a small hiatal hernia. There is no mediastinal or hilar adenopathy. Within the right lung there are scattered peripheral airspace opacities in the right upper lobe posteriorly which could represent atelectasis versus mild infiltrate. Similar patchy airspace opacity seen in the medial aspect of the right lower lobe. Diffuse patchy airspace opacity seen throughout the right lower lobe posteriorly and more inferiorly with vague airspace opacities in the right middle lobe. Mild atelectasis versus early infiltrate in the posterior left lung base also noted. There are no pericardial or pleural effusions. The visualized upper abdomen demonstrates a focal low density area within the right lobe of the liver anteriorly adjacent to the falciform ligament likely focal fatty change. This is better characterized with dedicated imaging of the liver on a nonemergent basis. There is no acute osseous abnormality. Marked diffuse multilevel degenerative disease seen throughout the thoracic spine. Mild loss of height of several vertebral bodies noted with adjacent sclerosis suggesting likely chronic findings but clinical correlation for point tenderness recommended. IMPRESSION: 1. Scattered bilateral infiltrates. 2. No central or proximal segmental pulmonary emboli. 3. Compression deformities in thoracic spine likely chronic but age indeterminate correlate for point tenderness. Other findings as above. Dictated on workstation # [id number] Dict: 03/24/21 1312 Trans: 03/24/21 1327 [facility] [id number] Interpreted by: ADILSON JJ MD Electronically signed by: [id number] again discussed with her the onset of symptoms, she states it has probably been at least 1.5-2 weeks but she cannot pinpoint when her chest pain or shortness of breath started. She denies having fevers at any time. She denies any diarrhea or headaches. As such I do not think that I can qualify her for Regeneron infusion based on timing. Her EKG shows sinus rhythm at eighty- one no ST segment elevation or depression, no ectopy. (SPENCER FIERRO APRN) Impression Primary Impression: COVID-19 Additional Impression: Lumbar radiculopathy Disposition: HOME, SELF-CARE Condition: Stable Departure-Patient Inst. Decision time for Depature: 12:20 (SPENCER FIERRO APRN) Referrals: MONSERRAT AMAYA MD (PCP) Primary Care Physician JACK ASENCIO (Family) Primary Care Physician Patient Instructions: COVID-19 ED, Radiculopathy (DC) Add. Discharge Instructions: 1. Steroids and gabapentin as directed for the back pain. Follow-up with your doctor in regards to this. Return to ER for any concerns. You are Covid positive so you should be quarantined away from others for 10 days from symptom onset. Scripts Potassium Chloride (Potassium Chloride) 20 Meq Tablet.er 20 MEQ PO DAILY, #5 TAB . Prov: SPENCER FIERRO APRN 03/24/21 Gabapentin (Gabapentin) 100 Mg Capsule 200 MG PO Q8H for Neuropathic pain, #60 CAP . Prov: SPENCER FIERRO APRN 03/24/21 Prednisone (Prednisone) 20 Mg Tab 40 MG PO DAILY, #8 TAB 0 Refills . Prov: SPENCER FIERRO APRN 03/24/21 ATTENDING PHYSICIAN NOTE: I was physically present as attending physician in the emergency department during the care of this patient, but I was not directly involved in the decision making or delivery of care for this patient. (ANDREY FORTE MD) SPENCER FIERRO APRN Mar 24, 2021 11:48 ANDREY FORTE MD Mar 24, 2021 20:21
[2021-03-24 11:51] LABS: BILIRUBIN,URINE NEGATIVE (NEGATIVE); CLARITY,URINE CLEAR; COLOR,URINE YELLOW; GLUCOSE, URINE (UA) NEGATIVE (NEGATIVE); KETONES,URINE NEGATIVE (NEGATIVE); LEUKOCYTE ESTERASE ,URINE NEGATIVE (NEGATIVE); NITRITE,URINE NEGATIVE (NEGATIVE); PROTEIN,URINE NEGATIVE (NEGATIVE)
[2021-03-24 11:58] LABS: BACTERIA,URINE NEGATIVE /HPF; SQUAMOUS EPITHELIAL CELL,UR RARE /HPF
[2021-03-24] MEDS ORDERED: HOLD METFORMIN - RECEIVED CONTRAST 20 ML VIAL IV SCH (12:00)
[2021-03-24] MEDS ORDERED: KETOROLAC 30 MG/ML VIAL IVP ONE (12:00)
[2021-03-24] MEDS ORDERED: IOHEXOL 350 MG/ML 100 ML (OMNIPAQUE 350) VIAL IV ONE (12:00)
[2021-03-24] MEDS ORDERED: NS 100 ML (IVPB) BAG IV ONE (12:00)
[2021-03-24] MEDS ORDERED: LORazepam INJ 2 MG/ML (ATIVAN) VIAL IVP PRN (12:00)
[2021-03-24 12:11] LABS: BASOPHILS % (AUTO) 0 % (0-10); EOSINOPHILS % (AUTO) 0 % (0-10); HEMATOCRIT 42 % (35-52); HEMOGLOBIN 13.2 g/dL (11.5-16.0); LYMPHOCYTES # (AUTO) 1.3 10^3/uL (1.0-4.0); LYMPHOCYTES % (AUTO) 22 % (12-44); MEAN CORPUSCULAR HEMOGLOBIN 29 pg (25-34); MEAN CORPUSCULAR HGB CONC 32 g/dL (32-36); MEAN CORPUSCULAR VOLUME 92 fL (80-99); MEAN PLATELET VOLUME 11.4 fL (9.0-12.2); MONOCYTES # (AUTO) 0.4 10^3/uL (0.0-1.0); MONOCYTES % (AUTO) 7 % (0-12); NEUTROPHILS # (AUTO) 4.2 10^3/uL (1.8-7.8); NEUTROPHILS % (AUTO) 70 % (42-75); PLATELET COUNT 244 10^3/uL (130-400)
[2021-03-24 12:23] LABS: ALBUMIN 3.8 GM/DL (3.2-4.5); POTASSIUM 2.8 MMOL/L (3.6-5.0)
[2021-03-24 12:24] LABS: CALCIUM 8.7 MG/DL (8.5-10.1)
[2021-03-24 12:25] LABS: TOTAL PROTEIN 7.7 GM/DL (6.4-8.2)
[2021-03-24 12:27] LABS: BILIRUBIN,TOTAL 0.6 MG/DL (0.1-1.0)
[2021-03-24 12:29] LABS: CREATININE SERUM 0.72 MG/DL (0.60-1.30)
[2021-03-24] MEDS ORDERED: POTASSIUM CL 10MEQ/50ML IVPB 50 ML IV ONE (12:45)
[2021-03-24] MEDS ORDERED: NS IV 1000 ML 1,000 ML IV SCH (12:45)
[2021-03-24] MEDS ORDERED: KCL 20 MEQ TAB (K-DUR) PO ONE (12:45)
--- NOTE | 2021-03-24 12:50 | Diagnostic Imaging Report ---
INDICATION: Cough, chest pain EXAMINATION: Chest 03/24/2021 COMPARISON: 02/21/2021 FINDINGS: The cardiomediastinal silhouette is unremarkable. The pulmonary vasculature is within normal limits. The lungs and pleural spaces are clear. IMPRESSION: No evidence of an acute cardiopulmonary process. Dictated by: Dictated on workstation # [id number]
[2021-03-24] MEDS ORDERED: PRD20T PO ×2 (12:55→14:50)
[2021-03-24] MEDS ORDERED: GABA-486 PO ×2 (12:55→14:50)
--- NOTE | 2021-03-24 13:28 | Diagnostic Imaging Report ---
PROCEDURE: CT angiography of the chest with contrast. TECHNIQUE: Multiple contiguous axial images were obtained through the chest after uneventful bolus administration of intravenous contrast. 3D reconstructed CTA MIP acquisitions were also performed. Auto Exposure Controls were utilized during the CT exam to meet ALARA standards for radiation dose reduction. INDICATION: Short of air, epigastric pain recent heart catheterization in January. CTA chest from 03/24/2021 COMPARISON: None. FINDINGS: There are no central or proximal segmental pulmonary emboli. The thoracic aorta unremarkable for acute abnormality with mild atherosclerotic disease noted. There is a small hiatal hernia. There is no mediastinal or hilar adenopathy. Within the right lung there are scattered peripheral airspace opacities in the right upper lobe posteriorly which could represent atelectasis versus mild infiltrate. Similar patchy airspace opacity seen in the medial aspect of the right lower lobe. Diffuse patchy airspace opacity seen throughout the right lower lobe posteriorly and more inferiorly with vague airspace opacities in the right middle lobe. Mild atelectasis versus early infiltrate in the posterior left lung base also noted. There are no pericardial or pleural effusions. The visualized upper abdomen demonstrates a focal low density area within the right lobe of the liver anteriorly adjacent to the falciform ligament likely focal fatty change. This is better characterized with dedicated imaging of the liver on a nonemergent basis. There is no acute osseous abnormality. Marked diffuse multilevel degenerative disease seen throughout the thoracic spine. Mild loss of height of several vertebral bodies noted with adjacent sclerosis suggesting likely chronic findings but clinical correlation for point tenderness recommended. IMPRESSION: 1. Scattered bilateral infiltrates. 2. No central or proximal segmental pulmonary emboli. 3. Compression deformities in thoracic spine likely chronic but age indeterminate correlate for point tenderness. Other findings as above. Dictated by: Dictated on workstation # [id number]
[2021-03-24] MEDS ORDERED: POTA-51 PO ×2 (13:40→14:50)
== END 2021-03-24 14:33 | disposition home or self-care (01) ==
LOC: EDUNIT# 11:28 → ER 11:29
DX: U07.1 COVID-19 (principal); M54.16 Radiculopathy, lumbar region; G89.29 Other chronic pain; M54.9 Dorsalgia, unspecified; E66.9 Obesity, unspecified; Z68.37 Body mass index [BMI] 37.0-37.9, adult; Z79.891 Long term (current) use of opiate analgesic; Z79.82 Long term (current) use of aspirin
CPT/HCPCS: 36415; 71045; 71275; 80053; 81000; 83880; 85025; 85379; 86141; 87636; 93005; 96374; 96375

== ENCOUNTER 2021-05-26 12:09 | Inpatient (IN) | payer MEDICARE ==
[2021-05-26] VITALS (10 sets, daily range): BP systolic 94–135; BP diastolic 32–86
[~2021-05-26] VITALS: Ht 170.1 cm; Wt 99.8 kg
[~2021-05-26 12:09] MED LIST changes: +GABA-486 PO; +POTA-51 PO; +PRD20T PO
[2021-05-26] MEDS ORDERED: NS IV 1000 ML 1,000 ML IV STA ×2 (12:27→13:54)
[2021-05-26] MEDS ORDERED: PANTOPRAZOLE 40 MG (PROTONIX) VIAL IV STA (12:27)
[2021-05-26] MEDS ORDERED: ONDANSETRON 4 MG/2 ML (SDV) Z0FRAN IVP STA (12:27)
[2021-05-26] MEDS ORDERED: KETOROLAC 30 MG/ML VIAL IVP STA (12:27)
--- NOTE | 2021-05-26 12:31 | ED GI ---
General Stated Complaint: ABD PAIN Source of Information: Patient, EMS History of Present Illness Date Seen by Provider: May 26, 2021 Time Seen by Provider: 12:11 Initial Comments 55-year-old female presenting by EMS from home with complaints of left-sided abdominal pain, nausea, vomiting, diarrhea. She states that this all came on suddenly this morning for her. She states that she was on the toilet and was vomiting "stool" and having diarrhea. She was having dizziness and feeling light headed. She has sharp pain to LUQ abdominal area that is 9 out of 10 per the patient. She has had cholecystectomy in the past but denies other abdominal surgeries and states she has not had pain and symptoms like this in the past. She called 911 to take her to be seen because she was feeling like she might pass out and was vomiting "stool" and could not control her diarrhea. When she walked outside to meet the ambulance she was covered in diarrhea. She continued to have liquid stool in the ambulance on the way to the ED. EMS reports they tried to direct her to go to [place] or [facility] in case she needed admitted but pt refused and wanted to come here to [place] from [place]. She denies eating or drinking anything new or different. She states that she has not been around anybody that has been sick having similar symptoms to this. She lives at home with her and he has not had symptoms like this. Timing/Duration: 4-6 Hours Severity/Quality: Severe, Stabbing (LUQ) Location: LUQ Radiation: No Radiation Activities at Onset: None Modifying Factors: Worsens With Movement, Worsens With Palpation Associated Symptoms: No Back Pain, No Chest Pain, No Diaphoresis, No Fever/Chills, No Fatigue, No Headache, No Heartburn; Nausea/Vomiting; No Rash, No Shortness of Air, No Swelling/Mass in Abdomen, No Syncope; Weakness Allergies and Home Medications Allergies Coded Allergies: No Known Drug Allergies (Unverified , 10/10/08) Patient Home Medication List Home Medication List Reviewed: Yes Acetaminophen (Tylenol) 325 Mg Tablet, 650 MG PO Q6H PRN for PAIN-MILD (1-4), (Reported) Entered as Reported by: UMMTAZ JACK on 02/21/21 0739 Aspirin (Aspirin EC) 81 Mg Tablet.dr 81 MG PO DAILY, (Reported) Entered as Reported by: MUMTAZ JACK on 02/21/21738 Cyclobenzaprine HCl (Cyclobenzaprine HCl) 10 Mg Tablet, 10 MG PO HS PRN for MUSCLE SPASMS, (Reported) Entered as Reported by: MUMTAZ JACK on 02/21/21738 Gabapentin (Gabapentin) 100 Mg Capsule, 200 MG PO Q8H Prescribed by: SPENCER FIERRO on 03/24/211449 Hydrocodone/Acetaminophen (Hydrocodone-Acetamin 7.5-325) 1 Each Tablet, 1-2 EACH PO Q6H PRN for PAIN-BREAKTHROUGH Prescribed by: CAIT CABALLERO on 02/23/21 172 Ibuprofen (Ibuprofen) 800 Mg Tablet, 800 MG PO Q8H PRN for PAIN-MILD, (Reported) Entered as Reported by: MUMTAZ JACK on 02/21/21738 Lisinopril (Lisinopril) 10 Mg Tablet, 10 MG PO DAILY, (Reported) Entered as Reported by: MUMTAZ JACK on 02/21/21738 Multivitamin (Multivitamin) 1 Each Tablet, 1 EACH PO DAILY, (Reported) Entered as Reported by: MUMTAZ JACK on 02/21/21738 Ondansetron (Ondansetron Odt) 4 Mg Tab.rapdis, 4 MG PO Q6H PRN for NAUSEA/VOMITING Prescribed by: CAIT CABALLERO on 02/23/211726 Pantoprazole Sodium (Pantoprazole Sodium) 40 Mg Tablet.dr, 40 MG PO DAILY, (Reported) Entered as Reported by: MUMTAZ JACK on 02/21/21738 Potassium Chloride (Potassium Chloride) 20 Meq Tablet.er, 20 MEQ PO DAILY Prescribed by: SPENCER FIERRO on 03/24/211449 Prednisone (Prednisone) 20 Mg Tab, 40 MG PO DAILY Prescribed by: SPENCER FIERRO on 03/24/211449 Tramadol HCl (Tramadol HCl) 50 Mg Tablet, 50 MG PO QID, (Reported) Entered as Reported by: MUMTAZ JACK on 02/21/21738 Review of Systems Review of Systems Constitutional: No chills, No diaphoresis; dizziness; No fever; malaise, weakness EENTM: No Symptoms Reported Respiratory: No Symptoms Reported Cardiovascular: No Symptoms Reported Gastrointestinal: See HPI Genitourinary: Denies Burning, Denies Frequency Musculoskeletal: no symptoms reported Skin: no symptoms reported Psychiatric/Neurological: Anxiety Endocrine: No Symptoms Reported Past Kkegepc-Rwgoxm-Jnijmp Hx Immunizations Up To Date Tetanus Booster (TDap): Unknown Seasonal Allergies Seasonal Allergies: No Past Medical History Surgery/Hospitalization HX: SX: 2 C-SECTIONS, GALLBLADDER, LEFT KNEE REPLACEMENT Section, Gallbladder, Orthopedic Reproductive Disorders: No Diverticulosis Arthritis, Chronic Back Pain Anxiety Physical Exam Vital Signs Vital Signs - First Documented 05/26/21 12:10 Temp 35.4 Pulse 106 Resp 18 B/P (MAP) 99/32 (54) O2 Delivery Room Air Capillary Refill : Height/Weight/BMI Height: 5'7" Weight: 230lbs. oz. [id number]; 37.00 BMI Method:Stated General Appearance: obese, other (anxious and pt keeps apologizing saying she is embarassed about having non-stop diarrhea and stool running off the bed and cot) HEENT: pharynx normal Neck: non-tender, full range of motion, supple, normal inspection Respiratory: chest non-tender, lungs clear, normal breath sounds, no respiratory distress, no accessory muscle use Cardiovascular: normal peripheral pulses, regular rate, rhythm Gastrointestinal: soft, no pulsatile mass, abnormal bowel sounds (hypoactive); No distended, No guarding, No rebound; tenderness (LUQ) Rectal: deferred, other (liquid brown colored stool covering ED cot) Extremities: normal range of motion, non-tender, normal capillary refill Neurologic/Psychiatric: alert, oriented x 3 Skin: normal color, warm/dry Focused Exam Lactate Level 05/26/21 12:36: Lactic Acid Level 2.79*H 05/26/21 14:48: Lactic Acid Level 1.01 Lactic Acid Level Laboratory Tests Test 05/26/21 12:36 05/26/21 14:48 Lactic Acid Level 2.79 MMOL/L (0.50-2.00) *H 1.01 MMOL/L (0.50-2.00) Progress/Results/Core Measures Results/Orders Lab Results Laboratory Tests Test 05/26/21 12:36 05/26/21 14:48 Range/Units White Blood Count 21.7 H 4.3-11.0 10^3/uL Red Blood Count 5.57 H 3.80-5.11 10^6/uL Hemoglobin 15.8 11.5-16.0 g/dL Hematocrit 49 35-52 % Mean Corpuscular Volume 88 80-99 fL Mean Corpuscular Hemoglobin 28 25-34 pg Mean Corpuscular Hemoglobin Concent 32 32-36 g/dL Red Cell Distribution Width 14.5 10.0-14.5 % Platelet Count 402 H 130-400 10^3/uL Mean Platelet Volume 11.3 9.0-12.2 fL Neutrophils (%) (Auto) 88 H 42-75 % Lymphocytes (%) (Auto) 9 L 12-44 % Monocytes (%) (Auto) 3 0-12 % Eosinophils (%) (Auto) 0 0-10 % Basophils (%) (Auto) 0 0-10 % Neutrophils # (Auto) 19.2 H 1.8-7.8 X 10^3 Lymphocytes # (Auto) 1.9 1.0-4.0 X 10^3 Monocytes # (Auto) 0.6 0.0-1.0 X 10^3 Eosinophils # (Auto) 0.0 0.0-0.3 10^3/uL Basophils # (Auto) 0.1 0.0-0.1 10^3/uL Neutrophils % (Manual) 84 % Lymphocytes % (Manual) 9 % Monocytes % (Manual) 6 % Eosinophils % (Manual) 1 % Toxic Granulation 4+ Sodium Level 138 135-145 MMOL/L Potassium Level 3.6 3.6-5.0 MMOL/L Chloride Level 96 L 98-107 MMOL/L Carbon Dioxide Level 22 21-32 MMOL/L Anion Gap 20 H 5-14 MMOL/L Blood Urea Nitrogen 18 7-18 MG/DL Creatinine 1.08 0.60-1.30 MG/DL Estimat Glomerular Filtration Rate 61 BUN/Creatinine Ratio 17 Glucose Level 181 H 70-105 MG/DL Lactic Acid Level 2.79 *H 1.01 0.50-2.00 MMOL/L Calcium Level 10.1 8.5-10.1 MG/DL Corrected Calcium 10.2 H 8.5-10.1 MG/DL Total Bilirubin 0.4 0.1-1.0 MG/DL Aspartate Amino Transf (AST/SGOT) 38 H 5-34 U/L Alanine Aminotransferase (ALT/SGPT) 32 0-55 U/L Alkaline Phosphatase 114 40-136 U/L Total Protein 8.2 6.4-8.2 GM/DL Albumin 3.9 3.2-4.5 GM/DL Lipase 27 8-78 U/L My Orders Orders - VINCENT LARKIN MD Stool Culture (05/26/21 12:25) Fecal Wbc (05/26/21 12:25) C Difficile Ag + Toxin A/B. (05/26/21 12:25) Comprehensive Metabolic Panel (05/26/21 12:25) Lipase (05/26/21 12:25) Ua Culture If Indicated (05/26/21 12:25) Ed Iv/Invasive Line Start (05/26/21 12:25) Cbc With Automated Diff (05/26/21 12:25) Isolation Central Supply Req (05/26/21 12:25) Ns Iv 1000 Ml (Sodium Chloride 0.9%) (05/26/21 12:27) Ondansetron Injection (Zofran Injectio (05/26/21 12:27) Pantoprazole Injection (Protonix Injecti (05/26/21 12:27) Ketorolac Injection (Toradol Injection) (05/26/21 12:27) Lactic Acid Analyzer (05/26/21 12:35) Manual Differential (05/26/21 12:36) Ct Abdomen/Pelvis Wo (05/26/21 12:25) Blood Culture (05/26/21 13:38) Ceftriaxone 1 Gm Pre-Mix (Rocephin 1 Gm (05/26/21 13:54) Metronidazole 500mg/100ml Ivpb (Flagyl 5 (05/26/21 13:54) Ns Iv 1000 Ml (Sodium Chloride 0.9%) (05/26/21 13:54) Ed Admission (Communication) (05/26/21 14:02) Vital Signs/I&O 05/26/21 12:10 Temp 35.4 Pulse 106 Resp 18 B/P (MAP) 99/32 (54) O2 Delivery Room Air Progress Progress Note #1: Progress Note obtain basic labs and urine. check Lactic acid with her having abdominal pain and copious amounts of diarrhea. Give 1 L NS IVF for hydration, Zofran 4 mg IV for nausea, Toradol 30 mg IV for LUQ abdominal pain, Pantoprazole 40 mg IV for LUQ abdominal pain/gastritis. Differential diagnosis includes bowel obstruction, diverticulitis, colitis, gastritis Progress Note #2: Progress Note Labs show elevated white blood cell count to 21.7 with a left shift. She does have a slightly elevated lactic acid to 2.79. Her chemistry panel otherwise appears stable without acute significant abnormality to explain her symptoms. Her CT scan does show evidence of colitis and diverticular disease in the left descending colon. Since she had IV access only in the left side of her neck no contrast was administered with the CT scan. She reports feeling improved with treatment here in the ED. She has had diarrhea improved since arriving in the emergency department. [address] Molina the on-call physician for [facility] and she accepted the patient for admission for colitis with sepsis and dehydration. Will continue with IV fluids and antibiotics. Will consult Dr. Shepard with surgery to advise him of the patient being admitted. Plan advised patient of findings and need for admission she did state that she was improved after treatment here in the ED. She also advised that she had been having a lot of heartburn and reflux as well as intermittent abdominal pain that has been going on. She had not seen anyone about it because it did not last long. Diagnostic Imaging Diagonstic Imaging: CT Plain Films/CT/US/NM/MRI: abdomen, pelvis Comments [facility]. [place], [place] NAME: INES GARAY [facility] REC#: [id number] PT STATUS: REG ER : 1965 PHYSICIAN: VINCENT LARKIN MD ADMIT DATE: 05/26/21/ER FS Signed Date of Exam:05/26/21 CT ABDOMEN/PELVIS WO PROCEDURE: CT abdomen and pelvis without contrast. TECHNIQUE: Multiple contiguous axial images were obtained through the abdomen and pelvis without the use of intravenous contrast. Auto Exposure Controls were utilized during the CT exam to meet ALARA standards for radiation dose reduction. INDICATION: Nausea, vomiting and diarrhea. FINDINGS: The heart size is normal. The lung bases are clear. The liver is normal in size without focal lesions. Gallbladder surgically absent. No biliary duct dilatation. Spleen is normal. Pancreas and adrenal glands are unremarkable. Aorta is nonaneurysmal. There is some mucosal thickening and inflammatory change about the descending colon suspect for colitis. There is a periumbilical hernia containing omental fat. There is some diverticular disease. Bladder is normal. There is no pelvic mass, adenopathy or free fluid. There are degenerative changes in the spine. IMPRESSION: Mucosal thickening and inflammatory change about the descending colon suspect for colitis. Additionally there is some mildly dilated loops of small bowel possibly reflecting some degree of enteritis. Fat-containing periumbilical hernia. Hiatal hernia. No other acute abnormality in the abdomen or pelvis. Dictated by: Dictated on workstation # [id number] Dict: 05/26/21 1323 Trans: 05/26/21 1338 [facility] [id number] Interpreted by: BRY GOMEZ MD Electronically signed by: BRY GOMEZ MD 05/26/21 1338 Reviewed: Reviewed by Me Departure Communication (Admissions) Time/Spoke to Admitting Phy: 14:02 D/w Dr. Molina about admit for [facility] since pt follows with Dr. Amaya. With sepsis since she has elevated Lactic acid and WBC count will administer IV antibiotics and continue with IVF for hydration. She did request that surgery be notified of admit as well. Time/Spoke to Consulting Phy: 14:[address] Shepard and advised him of the consult on the patient Impression Primary Impression: Colitis Additional Impressions: Nausea vomiting and diarrhea LUQ abdominal pain Sepsis Qualified Codes: A41.9 - Sepsis, unspecified organism Disposition: 30 STILL A PATIENT Condition: Stable Admissions Decision to Admit Reason: Admit from ER (General) Decision to Admit/Date: May 26, 2021 Time/Decision to Admit Time: 14:02 Departure-Patient Inst. Referrals: MONSERRAT AMAYA MD (PCP) Primary Care Physician JACK ASENCIO (Family) Primary Care Physician VINCENT LARKIN MD May 26, 2021 12:31
[2021-05-26 12:44] LABS: HEMATOCRIT 49 % (35-52); HEMOGLOBIN 15.8 g/dL (11.5-16.0); MEAN CORPUSCULAR HEMOGLOBIN 28 pg (25-34); MEAN CORPUSCULAR VOLUME 88 fL (80-99); WHITE BLOOD COUNT 21.7 10^3/uL (4.3-11.0)
[2021-05-26 12:45] LABS: BASOPHILS # (AUTO) 0.1 10^3/uL (0.0-0.1); BASOPHILS % (AUTO) 0 % (0-10); EOSINOPHILS % (AUTO) 0 % (0-10); LYMPHOCYTES # (AUTO) 1.9 X 10^3 (1.0-4.0); LYMPHOCYTES % (AUTO) 9 % (12-44); MEAN CORPUSCULAR HGB CONC 32 g/dL (32-36); MEAN PLATELET VOLUME 11.3 fL (9.0-12.2); MONOCYTES # (AUTO) 0.6 X 10^3 (0.0-1.0); MONOCYTES % (AUTO) 3 % (0-12); NEUTROPHILS # (AUTO) 19.2 X 10^3 (1.8-7.8); NEUTROPHILS % (AUTO) 88 % (42-75); PLATELET COUNT 402 10^3/uL (130-400)
[2021-05-26 13:00] LABS: EOSINOPHILS % (MANUAL) 1 %; LYMPHOCYTES % (MANUAL) 9 %; MONOCYTES % (MANUAL) 6 %; NEUTROPHILS % (MANUAL) 84 %; TOXIC GRANULATION/VACUOLAZATIO 4+
[2021-05-26 13:04] LABS: ALBUMIN 3.9 GM/DL (3.2-4.5); BILIRUBIN,TOTAL 0.4 MG/DL (0.1-1.0); CALCIUM 10.1 MG/DL (8.5-10.1); CREATININE SERUM 1.08 MG/DL (0.60-1.30); POTASSIUM 3.6 MMOL/L (3.6-5.0); TOTAL PROTEIN 8.2 GM/DL (6.4-8.2)
--- NOTE | 2021-05-26 13:28 | Diagnostic Imaging Report ---
PROCEDURE: CT abdomen and pelvis without contrast. TECHNIQUE: Multiple contiguous axial images were obtained through the abdomen and pelvis without the use of intravenous contrast. Auto Exposure Controls were utilized during the CT exam to meet ALARA standards for radiation dose reduction. INDICATION: Nausea, vomiting and diarrhea. FINDINGS: The heart size is normal. The lung bases are clear. The liver is normal in size without focal lesions. Gallbladder surgically absent. No biliary duct dilatation. Spleen is normal. Pancreas and adrenal glands are unremarkable. Aorta is nonaneurysmal. There is some mucosal thickening and inflammatory change about the descending colon suspect for colitis. There is a periumbilical hernia containing omental fat. There is some diverticular disease. Bladder is normal. There is no pelvic mass, adenopathy or free fluid. There are degenerative changes in the spine. IMPRESSION: Mucosal thickening and inflammatory change about the descending colon suspect for colitis. Additionally there is some mildly dilated loops of small bowel possibly reflecting some degree of enteritis. Fat-containing periumbilical hernia. Hiatal hernia. No other acute abnormality in the abdomen or pelvis. Dictated by: Dictated on workstation # [id number]
[2021-05-26] MEDS ORDERED: metroNIDAZOLE 500MG/100ML IVPB 100 ML IV STA (13:54)
[2021-05-26] MEDS ORDERED: cefTRIAXone 1 GM PRE-MIX 50 ML IV STA (13:54)
[2021-05-26] MEDS ORDERED: MELATONIN 3 MG TABLET PO PRN (17:15)
[2021-05-26] MEDS ORDERED: diphenhydrAMINE 25 MG TAB (BENADRYL) PO PRN (17:15)
[2021-05-26] MEDS ORDERED: SCOPOLAMINE 1.5 MG (TRANSDERM-SCOP) PATCH TD ONE (17:15)
[2021-05-26] MEDS ORDERED: ANTACID SUSP 30 ML UDC (MYLANTA) PO PRN (17:15)
[2021-05-26] MEDS ORDERED: morphine INJ 4 MG/ML 1 ML (VIAL/SYRINGE) IV PRN (17:15)
[2021-05-26] MEDS ORDERED: ONDANSETRON 4 MG (ZOFRAN) ORAL DISSOLVE TAB PO PRN (17:15)
[2021-05-26] MEDS ORDERED: PROMETHAZINE INJ 25 MG/ML (PHENERGAN) AMP IM PRN (17:15)
[2021-05-26] MEDS ORDERED: polyethylene glycoL POWDER 17 GM (MIRALAX) PACK PO PRN (17:15)
[2021-05-26] MEDS ORDERED: diphenhydrAMINE 50 MG/ML INJ (BENADRYL) IVP PRN (17:15)
[2021-05-26] MEDS ORDERED: NALOXONE 0.4 MG/ML 1 ML (NARCAN) VIAL IV PRN (17:15)
[2021-05-26] MEDS ORDERED: BISACODYL 10 MG SUPP (DULCOLAX) PR PRN (17:15)
[2021-05-26] MEDS ORDERED: ACETAMINOPHEN 325 MG TABLET PO PRN (17:15)
--- NOTE | 2021-05-26 17:58 | Consultation - Surgery ---
CHASEAGUSTIN 05/26/21 1758: History of Present Illness History of Present Illness Patient Consulted On(ramakrishna/time) 05/26/21 17:37 Date Seen by Provider: May 26, 2021 History of Present Illness Stephanie Fontenot is a 55 yo female with a history of recent heart cath, HTN, diverticulosis, cholecystectomy, and GERD who presented from [place] for sudden onset left-sided abdominal pain, copremesis, and copious diarrhea that began this morning; she states the pain--rated a 6/10--is constant, sharp, and is aggravated by movement or pressure, for which surgical consult was requested. She states that she has had similar, milder episodes in the past year that would resolve without intervention. Stephanie states that she avoids eating in order to prevent these episodes, which has led to a 20 lb WL over the past year. Stephanie reports that she has had an EGD and colonoscopy in the past 'couple' years, which revealed esophagitis and diverticulosis. She denies any recent illnesses, subjective fever, hemetemesis, hematochezia, or radiating pain, but states she felt SOA, dizzy, and faint prior to ED presentation. At the time of my visit, she was alert, pleasant, and conversational and is accompanied by three family members at bedside. Allergies and Home Medications Allergies Coded Allergies: No Known Drug Allergies (Unverified , 05/26/21) Patient Home Medication List Home Medication List Reviewed: Yes Acetaminophen (Tylenol) 325 Mg Tablet, 650 MG PO Q6H PRN for PAIN-MILD (1-4), (Reported) Entered as Reported by: MUMTAZ JACK on 02/21/21738 Aspirin (Aspirin EC) 81 Mg Tablet.dr, 81 MG PO DAILY, (Reported) Entered as Reported by: MUMTAZ JACK on 02/21/21738 Cyclobenzaprine HCl (Cyclobenzaprine HCl) 10 Mg Tablet, 10 MG PO HS PRN for MUSCLE SPASMS, (Reported) Entered as Reported by: MUMTAZ JACK on 02/21/21738 Gabapentin (Gabapentin) 100 Mg Capsule, 200 MG PO Q8H Prescribed by: SPENCER FIERRO on 03/24/21 1450 Hydrocodone/Acetaminophen (Hydrocodone-Acetamin 7.5-325) 1 Each Tablet, 1-2 EACH PO Q6H PRN for PAIN-BREAKTHROUGH Prescribed by: CAIT CABALLERO on 02/23/21 172 Ibuprofen (Ibuprofen) 800 Mg Tablet, 800 MG PO Q8H PRN for PAIN-MILD, (Reported) Entered as Reported by: MUMTAZ JACK on 02/21/21738 Lisinopril (Lisinopril) 10 Mg Tablet, 10 MG PO DAILY, (Reported) Entered as Reported by: MUMTAZ JACK on 02/21/21738 Multivitamin (Multivitamin) 1 Each Tablet, 1 EACH PO DAILY, (Reported) Entered as Reported by: MUMTAZ JACK on 02/21/21738 Ondansetron (Ondansetron Odt) 4 Mg Tab.rapdis, 4 MG PO Q6H PRN for NAUS EA/VOMITING Prescribed by: CAIT CABALLERO on 02/23/21 172 Pantoprazole Sodium (Pantoprazole Sodium) 40 Mg Tablet.dr, 40 MG PO DAILY, (Reported) Entered as Reported by: MUMTAZ JACK on 02/21/21738 Potassium Chloride (Potassium Chloride) 20 Meq Tablet.er, 20 MEQ PO DAILY Prescribed by: SPENCER FIERRO on 03/24/21 145 Prednisone (Prednisone) 20 Mg Tab, 40 MG PO DAILY Prescribed by: SPENCER FIERRO on 03/24/21 145 Tramadol HCl (Tramadol HCl) 50 Mg Tablet, 50 MG PO QID, (Reported) Entered as Reported by: MUMTAZ JACK on 02/21/21738 Past Nvmiwdw-Evrhlw-Tdofdd Hx Patient Social History Smoking Status: Never a Smoker Alcohol Use?: No Have you traveled recently?: No Immunizations Up To Date Tetanus Booster (TDap): Unknown Seasonal Allergies Seasonal Allergies: No Surgeries Surgeries: Cardiac (patient states heart cath 3 months ago), Section, Gallbladder, Orthopedic Cardiovascular Cardiac Disorders: Hypertension Reproductive System Hx Reproductive Disorders: No Gastrointestinal Gastrointestinal Disorders: Gastroesophageal Reflux, Diverticulosis, Esophagitis, Gall Bladder Disease Musculoskeletal Musculoskeletal Disorders: Arthritis, Chronic Back Pain Psychosocial Behavioral Health Disorders: Anxiety Family Medical History Significant Family History: No Pertinent Family Hx, Heart Disease (Mom) Review of Systems-General Constitutional: No fever; malaise, weakness EENTM: No ear pain, No eye pain Respiratory: No cough, No hemoptysis Cardiovascular: Hx of Intervention; No palpitations Gastrointestinal: LUQ, abdominal pain (LUQ), diarrhea; No hematemesis; heartburn, loss of appetite; No melena; nausea, vomiting Genitourinary: No dysuria, No frequency Musculoskeletal: back pain; No joint swelling Skin: No change in color, No change in hair/nails Psychiatric/Neurological: Denies Anxiety, Denies Depressed Physical Exam-General Problems Physical Exam Vital Signs Vital Signs - First Documented 05/26/21 05/26/21 12:10 15:29 Temp 35.4 Pulse 106 Resp 18 B/P (MAP) 99/32 (54) Pulse Ox 97 O2 Delivery Room Air Capillary Refill : Less Than 3 Seconds General Appearance: WD/WN, no apparent distress Eyes: Bilateral Eye Normal Inspection, Bilateral Eye PERRL, Bilateral Eye EOMI HEENT: PERRL/EOMI, normal ENT inspection, TMs normal, pharynx normal Neck: non-tender, full range of motion, supple, normal inspection Respiratory: chest non-tender, lungs clear, normal breath sounds, no respiratory distress, no accessory muscle use Cardiovascular: normal peripheral pulses, regular rate, rhythm, no edema, no gallop, no JVD Peripheral Pulses: 2+ Radial Pulses (L) Gastrointestinal: normal bowel sounds, soft, tenderness (mild, L-sided) Extremities: normal range of motion, normal inspection, no pedal edema, normal capillary refill Neurologic/Psychiatric: no motor/sensory deficits, alert, normal mood/affect, oriented x 3 Skin: normal color, warm/dry Data Review Labs Laboratory Tests 05/26/21 12:36: White Blood Count 21.7H, Red Blood Count 5.57H, Hemoglobin 15.8, Hematocrit 49, Mean Corpuscular Volume 88, Mean Corpuscular Hemoglobin 28, Mean Corpuscular Hemoglobin Concent 32, Red Cell Distribution Width 14.5, Platelet Count 402H, Mean Platelet Volume 11.3, Neutrophils (%) (Auto) 88H, Lymphocytes (%) (Auto) 9L , Monocytes (%) (Auto) 3, Eosinophils (%) (Auto) 0, Basophils (%) (Auto) 0, Neutrophils # (Auto) 19.2H, Lymphocytes # (Auto) 1.9, Monocytes # (Auto) 0.6, Eosinophils # (Auto) 0.0, Basophils # (Auto) 0.1, Neutrophils % (Manual) 84, Lymphocytes % (Manual) 9, Monocytes % (Manual) 6, Eosinophils % (Manual) 1, Toxic Granulation 4+, Sodium Level 138, Potassium Level 3.6, Chloride Level 96L, Carbon Dioxide Level 22, Anion Gap 20H, Blood Urea Nitrogen 18, Creatinine 1.08, Estimat Glomerular Filtration Rate 61, BUN/Creatinine Ratio 17, Glucose Level 181H, Lactic Acid Level 2.79*H, Calcium Level 10.1, Corrected Calcium 10.2H, Total Bilirubin 0.4, Aspartate Amino Transf (AST/SGOT) 38H, Alanine Aminotransferase (ALT/SGPT) 32, Alkaline Phosphatase 114, Total Protein 8.2, Albumin 3.9, Lipase 27 05/26/21 14:48: Lactic Acid Level 1.01 Radiology Date of Exam:05/26/21 CT ABDOMEN/PELVIS WO PROCEDURE: CT abdomen and pelvis without contrast. TECHNIQUE: Multiple contiguous axial images were obtained through the abdomen and pelvis without the use of intravenous contrast. Auto Exposure Controls were utilized during the CT exam to meet ALARA standards for radiation dose reduction. INDICATION: Nausea, vomiting and diarrhea. FINDINGS: The heart size is normal. The lung bases are clear. The liver is normal in size without focal lesions. Gallbladder surgically absent. No biliary duct dilatation. Spleen is normal. Pancreas and adrenal glands are unremarkable. Aorta is nonaneurysmal. There is some mucosal thickening and inflammatory change about the descending colon suspect for colitis. There is a periumbilical hernia containing omental fat. There is some diverticular disease. Bladder is normal. There is no pelvic mass, adenopathy or free fluid. There are degenerative changes in the spine. IMPRESSION: Mucosal thickening and inflammatory change about the descending colon suspect for colitis. Additionally there is some mildly dilated loops of small bowel possibly reflecting some degree of enteritis. Fat-containing periumbilical hernia. Hiatal hernia. No other acute abnormality in the abdomen or pelvis. Assessment/Plan Assessment/Plan Assessment/Plan 1. Left-sided abdominal pain -Colitis vs Diverticulitis -Antibiotics -Clear liquid diet -Pain management -Consider repeat imaging -DVT prophylaxis -Consider outpatient EGD/colonoscopy 2. Copremesis -Zofran 3. Diarrhea -Continue fluid replacement 4. Sepsis -WBC 21.7 -Lactic acid has decreased to 1.57 from 2.79 -Continue antibiotics 5. Dehydration -Improving after IVF 6. GERD -Pantoprazole MONIQUE JOVEL DO 05/26/212136: History of Present Illness History of Present Illness Time Seen by Provider: 20:45 History of Present Illness Consult requested by Dr. Molina for Colitis. Patient is a 55 year old female who has had pain on and off for quite a bit of time she states. The last 3 months though have worsened, having more on and off pain in the luq. Today the pain she states began and is more constant sharp/achy type pain. No radiation of pain. She rates it at about 6/10. Pressure and movement makes worse. She was having nausea and emesis that is feculent she states. She's had multilple episodes of diarrhea which she is unable to control. No blood in stools. Patient has lost about 20 pounds over the last 3 months. She has gerd/reflux issues on regular basis. She states things have worsened to where she had to go to ER today. Patient had a wbc of [address] a [address] scan consistent with descending colitis and small bowel loops possible enteritis. Allergies and Home Medications Allergies Coded Allergies: No Known Drug Allergies (Unverified , 05/26/21) Patient Home Medication List Home Medication List Reviewed: Yes Acetaminophen (Tylenol) 325 Mg Tablet, 650 MG PO Q6H PRN for PAIN-MILD (1-4), (Reported) Entered as Reported by: MUMTAZ JACK on 02/21/21 0739 Aspirin (Aspirin EC) 81 Mg Tablet.dr, 81 MG PO DAILY, (Reported) Entered as Reported by: MUMTAZ JACK on 02/21/21 0739 Cyclobenzaprine HCl (Cyclobenzaprine HCl) 10 Mg Tablet, 10 MG PO HS PRN for MUSCLE SPASMS, (Reported) Entered as Reported by: MUMTAZ JACK on 02/21/21 0739 Gabapentin (Gabapentin) 100 Mg Capsule, 200 MG PO Q8H Prescribed by: SPENCER FIERRO on 03/24/21 1450 Hydrocodone/Acetaminophen (Hydrocodone-Acetamin 7.5-325) 1 Each Tablet, 1-2 EACH PO Q6H PRN for PAIN-BREAKTHROUGH Prescribed by: CAIT CABALLERO on 02/23/21 1728 Ibuprofen (Ibuprofen) 800 Mg Tablet, 800 MG PO Q8H PRN for PAIN-MILD, (Reported) Entered as Reported by: MUMTAZ JACK on 02/21/21738 Lisinopril (Lisinopril) 10 Mg Tablet, 10 MG PO DAILY, (Reported) Entered as Reported by: MUMTAZ JACK on 02/21/21738 Multivitamin (Multivitamin) 1 Each Tablet, 1 EACH PO DAILY, (Reported) Entered as Reported by: MUMTAZ JACK on 02/21/21738 Ondansetron (Ondansetron Odt) 4 Mg Tab.rapdis, 4 MG PO Q6H PRN for NAUSEA/VOMITING Prescribed by: CAIT CABALLERO on 02/23/21 1727 Pantoprazole Sodium (Pantoprazole Sodium) 40 Mg Tablet.dr, 40 MG PO DAILY, (R eported) Entered as Reported by: MUMTAZ JACK on 02/21/21738 Potassium Chloride (Potassium Chloride) 20 Meq Tablet.er, 20 MEQ PO DAILY Prescribed by: SPENCER FIERRO on 03/24/21 145 Prednisone (Prednisone) 20 Mg Tab, 40 MG PO DAILY Prescribed by: SPENCER FIERRO on 03/24/21 145 Tramadol HCl (Tramadol HCl) 50 Mg Tablet, 50 MG PO QID, (Reported) Entered as Reported by: MUMTAZ JACK on 02/21/21738 Past Rbbjbkh-Rdzasy-Kizlwe Hx Reviewed Nursing Assessment Reviewed/Agree w Nursing PMH: Yes Family Medical History Significant Family History: Heart Disease (Mom) Review of Systems-General Constitutional: No fever; malaise, weakness EENTM: No ear pain, No eye pain Respiratory: No cough, No hemoptysis Cardiovascular: Hx of Intervention; No palpitations Gastrointestinal: LUQ, abdominal pain (LUQ), diarrhea; No hematemesis; heartbur n, loss of appetite; No melena; nausea, vomiting Genitourinary: No dysuria, No frequency Musculoskeletal: back pain; No joint swelling Skin: No change in color, No change in hair/nails Psychiatric/Neurological: Denies Anxiety, Denies Depressed, Denies Emotional Problems All Other Systems Reviewed Negative Unless Noted: Yes (Negative excepted noted.) Physical Exam-General Problems Physical Exam General Appearance: WD/WN, no apparent distress HEENT: PERRL/EOMI, normal ENT inspection Neck: non-tender, supple Respiratory: chest non-tender, no respiratory distress, no accessory muscle use Cardiovascular: regular rate, rhythm, no JVD Gastrointestinal: soft, tenderness (mild, L-sided) Rectal: deferred Back: normal inspection, no CVA tenderness Extremities: normal inspection, no pedal edema Neurologic/Psychiatric: no motor/sensory deficits, alert, normal mood/affect, oriented x 3 Skin: normal color, warm/dry Lymphatic: no adenopathy Assessment/Plan Assessment/Plan Assessment/Plan Left-sided abdominal pain Colitis Nausea and vomiting Diarrhea Sepsis Dehydration GERD Clear liquid diet Bowel rest IV fluids Continue ceftriaxone/flagyl conservative management at this time will plan egd/colonoscopy as outpatient as long as continues to improve Supervisory-Addendum Brief Verification & Attestation Participated in pt care: history, MDM, physical Personally performed: exam, history, MDM, supervision of care Care discussed with: Medical Student Procedures: n/a Results interpretation: Verified all documentation Verification and Attestation of Medical Student E/M Service A medical student performed and documented this service in my presence. I reviewed and verified all information documented by the medical student and made modifications to such information, when appropriate. I personally performed the physical exam and medical decision making. Monique Jovel, May 26, 2021,21:40 AGUSTIN STONE May 26, 2021 17:58 MONIQUE JOVEL DO May 26, 2021 21:37
[2021-05-26] MEDS ORDERED: RT-ALBUTEROL SULF 2.5 MG/3 ML PRE-MIX VIAL INH PRN (18:00)
[2021-05-26] MEDS ORDERED: NS IV 1000 ML 1,000 ML ONE (18:35)
[2021-05-26] MEDS: NS IV 1000 ML 1,000 ML IV SCH (19:31)
[2021-05-26] MEDS: inSUlin ASPART (NovoLOG) 1 UNIT/0.01 ML (CHARGE PER UNIT) SC SCH (20:12)
[2021-05-26] MEDS: DOCUSATE SODIUM 100 MG (COLACE) CAP PO SCH (20:12)
[2021-05-26] MEDS: ENOXAPARIN 40 MG/0.4 ML (LOVENOX) SYR SC SCH (21:35)
[2021-05-26] MEDS ORDERED: SCOPOLAMINE 1.5 MG (TRANSDERM-SCOP) PATCH ONE (21:39)
[2021-05-26] MEDS: ONDANSETRON 4 MG/2 ML (SDV) Z0FRAN IV PRN (21:54)
[2021-05-27] MEDS: metroNIDAZOLE 500MG/100ML IVPB 100 ML IV SCH ×2 (01:58→13:29)
[2021-05-27] MEDS: NS IV 1000 ML 1,000 ML IV SCH ×2 (01:59→09:54)
[2021-05-27 04:47] VITALS: BP 114/71
[2021-05-27 06:10] LABS: BASOPHILS # (AUTO) 0.1 10^3/uL (0.0-0.1); BASOPHILS % (AUTO) 1 % (0-10); EOSINOPHILS % (AUTO) 0 % (0-10); HEMATOCRIT 35 % (35-52); HEMOGLOBIN 10.9 g/dL (11.5-16.0); LYMPHOCYTES # (AUTO) 2.5 10^3/uL (1.0-4.0); LYMPHOCYTES % (AUTO) 22 % (12-44); MEAN CORPUSCULAR HEMOGLOBIN 28 pg (25-34); MEAN CORPUSCULAR HGB CONC 31 g/dL (32-36); MEAN CORPUSCULAR VOLUME 90 fL (80-99); MEAN PLATELET VOLUME 11.1 fL (9.0-12.2); MONOCYTES # (AUTO) 0.6 10^3/uL (0.0-1.0); MONOCYTES % (AUTO) 6 % (0-12); NEUTROPHILS # (AUTO) 7.8 10^3/uL (1.8-7.8); NEUTROPHILS % (AUTO) 71 % (42-75); PLATELET COUNT 266 10^3/uL (130-400)
[2021-05-27 06:25] LABS: ALBUMIN 2.9 GM/DL (3.2-4.5); BILIRUBIN,TOTAL 0.3 MG/DL (0.1-1.0); CREATININE SERUM 0.74 MG/DL (0.60-1.30); POTASSIUM 3.5 MMOL/L (3.6-5.0); TOTAL PROTEIN 5.6 GM/DL (6.4-8.2)
[2021-05-27] MEDS: inSUlin ASPART (NovoLOG) 1 UNIT/0.01 ML (CHARGE PER UNIT) SC SCH ×4 (06:30→21:33)
--- NOTE | 2021-05-27 06:34 | History & Physical-Hospitalist ---
History of Present Illness HPI/Chief Complaint CC: Abdominal pain HPI: This is a 55yoWF clinic patient of [facility] who has a h/o cardiac cath due to CP with right femoral hematoma/aneurysm and last colonoscopy [address] [facility] which revealed diverticulosis who presented to the [facility] ER due to abdominal pain and N/V and diverticulitis on CT scan placed on IV abx and CLD and Dr Mckeon consulted. Patient feels better now and is having no pain. Source: patient Exam Limitations: no limitations Date Seen 05/27/21 Time Seen by a Provider: 12:00 Attending Physician Patti Molina Pankaj K MD Referring Physician Date of Admission May 26, 2021 at 16:15 Home Medications & Allergies Home Medications Reviewed patient Home Medication Reconciliation performed by pharmacy medication reconciliations integrated pest management technician and/or nursing. Patients Allergies have been reviewed. Allergies Allergies Coded Allergies No Known Drug Allergies (Unverified05/26/21) Past Hbzweoy-Ajmfwn-Izwqvy Hx Patient Social History Marrital Status: single Employed/Student: unemployed Tobacco Use?: No Smoking Status: Never a Smoker Smokeless Tobacco Frequency: Never a User Use of E-Cig and/or Vaping dev: No Use of E-Cig and/or Vaping Joey: Never a User Substance use?: No Alcohol Use?: No Pt feels they are or have been: No Immunizations Up To Date Tetanus Booster (TDap): Unknown Seasonal Allergies Seasonal Allergies: No Current Status status: No status: No Advance Directives: No Communicates: Verbally Primary Language: Citizen Of [place] Preferred Spoken Language: Citizen Of [place] Is interpretation needed?: No Sensory deficits: Vision impairment Implanted or Applied Medical D: None Past Medical History Surgeries: Cardiac (patient states heart cath 3 months ago), Section, Gallbladder, Orthopedic Hypertension Gastroesophageal Reflux, Diverticulosis, Esophagitis, Gall Bladder Disease Arthritis, Chronic Back Pain Anxiety Family Medical History Heart Disease (Mom) Review of Systems Constitutional: see HPI EENTM: no symptoms reported Respiratory: no symptoms reported Cardiovascular: no symptoms reported Gastrointestinal: abdominal pain, loss of appetite, nausea, vomiting Genitourinary: no symptoms reported Musculoskeletal: no symptoms reported Skin: no symptoms reported Psychiatric/Neurological: No Symptoms Reported All Other Systems Reviewed Negative Unless Noted: Yes Physical Exam Physical Exam Vital Signs Vital Signs - First Documented 05/26/21 05/26/21 05/26/21 12:10 15:29 17:29 Temp 35.4 Pulse 106 Resp 18 B/P (MAP) 99/32 (54) Pulse Ox 97 O2 Delivery Room Air FiO2 21 Capillary Refill : Less Than 3 Seconds Height, Weight, BMI Height: 5'7" Weight: 230lbs. oz. 104.022668br; 34.49 BMI Method:Stated General Appearance: No Apparent Distress, Anxious, Chronically ill Eyes: Right Eye Normal Inspection, Right Eye PERRL HEENT: PERRL/EOMI, Normal ENT Inspection, Pharynx Normal, Moist Mucous Membranes Neck: Full Range of Motion, Normal Inspection, Non Tender Respiratory: Chest Non Tender, Lungs Clear, Normal Breath Sounds, No Accessory Muscle Use, No Respiratory Distress Cardiovascular: Regular Rate, Rhythm, No Edema, No Gallop, No JVD, No Murmur, Normal Peripheral Pulses Gastrointestinal: Normal Bowel Sounds, No Organomegaly, No Pulsatile Mass, Soft, Tenderness Back: Normal Inspection, No CVA Tenderness, No Vertebral Tenderness Extremity: Normal Capillary Refill, Normal Inspection, Normal Range of Motion, Non Tender, No Calf Tenderness, No Pedal Edema Neurologic/Psychiatric: Alert, Oriented x3, No Motor/Sensory Deficits, Normal Mood/Affect Skin: Normal Color, Warm/Dry Lymphatic: No Adenopathy Results Results/Procedures Labs Laboratory Tests 05/26/21 12:36 05/27/21 05:58 Patient resulted labs reviewed. Assessment/Plan Admission Diagnosis Assessment: Abdominal pain Acute diverticulitis N/V Dehydration HTN Chronic back pain Anxiety Plan: IVF IV abx Surgery consult Admission Status: Inpatient Order (span 2 midnights) Reason for Inpatient Admission: Acute diverticulitis Diagnosis/Problems Diagnosis/Problems (1) Colitis Status: Acute (2) LUQ abdominal pain Status: Acute (3) Nausea vomiting and diarrhea Status: Acute (4) Sepsis Status: Acute Qualifiers: Sepsis type: sepsis due to unspecified organism Sepsis acute organ dysfunction status: without acute organ dysfunction Qualified Codes: A41.9 - Sepsis, unspecified organism PATTI MOLINA DO May 27, 2021 06:34
--- NOTE | 2021-05-27 07:22 | Progress Note - Surgery ---
FARRMercyAGUSTIN BURGOS 05/27/21 0722: Subjective Date Seen by a Provider: May 27, 2021 Time Seen by a Provider: 07:22 Subjective/Events-last exam Upon follow-up for diverticulitis, Stephanie is laying supine in bed; she states she subjectively feels improved and reports diffuse pressure sensation and 6/10 achey pain in abdomen, which momentarily flared up last night and spontaneously resolved. She denies having any BM, but states that she is passing flatus, and is able to ambulate to the bathroom to urinate. Stephanie states that she continues to feel weak and dizzy when she ambulates, but this has improved since yesterday. Review of Systems General: Fatigue; No Malaise HEENT: No Head Aches, No Visual Changes Pulmonary: No Dyspnea, No Cough Cardiovascular: No: Chest Pain, Palpitations Gastrointestinal: Abdominal Pain; No: Nausea, Vomiting Genitourinary: No Dysuria, No Frequency Musculoskeletal: No: arm pain, back pain Neurological: No: Weakness, Numbness Focused Exam Lactate Level 05/26/21 12:36: Lactic Acid Level 2.79*H 05/26/21 14:48: Lactic Acid Level 1.01 05/26/21 17:51: Lactic Acid Level 1.57 Respiratory: Chest Non Tender, Lungs Clear, Normal Breath Sounds, No Accessory Muscle Use, No Respiratory Distress Cardiovascular: Regular Rate, Rhythm, No Edema, No Gallop, Normal Peripheral Pulses Peripheral Pulses: 2+ Radial Pulses (L) Skin: normal color, warm/dry Objective Exam Vital Signs Date Time Temp Pulse Resp B/P (MAP) Pulse Ox O2 Delivery O2 Flow Rate FiO2 05/27/21 04:47 36.4 79 18 114/71 (85) 98 Room Air 05/27/21 01:00 76 05/26/21 23:32 36.9 82 18 103/58 (73) 97 Room Air 05/26/21 20:45 36.7 77 18 109/65 (80) 95 Room Air 05/26/21 20:00 36.7 72 18 135/71 (92) 95 Room Air 05/26/21 20:00 Room Air 05/26/21 19:45 36.7 72 18 94/56 (69) 95 Room Air 05/26/21 19:24 95 Room Air 05/26/21 19:00 86 05/26/21 18:15 36.6 77 18 125/82 (96) 95 Room Air 05/26/21 18:05 Room Air 05/26/21 17:45 36.4 80 18 114/78 (90) 95 Room Air 05/26/21 17:30 36.4 80 18 114/78 (90) 95 Room Air 05/26/21 17:29 35.4 106 97 21 05/26/21 17:15 36.2 90 18 121/86 (98) 95 Room Air 05/26/21 17:00 36.5 83 18 135/71 (92) 95 Room Air 05/26/21 15:29 76 17 124/68 97 Room Air 05/26/21 12:10 35.4 106 18 99/32 (54) Room Air I & O 05/27/21 07:00 Intake Total 3600 ml Balance 3600 ml Capillary Refill : Less Than 3 Seconds General Appearance: No Apparent Distress, WD/WN, Obese HEENT: Normal ENT Inspection Neck: Normal Inspection, Supple Respiratory: Chest Non Tender, Lungs Clear, Normal Breath Sounds, No Accessory Muscle Use, No Respiratory Distress Cardiovascular: Regular Rate, Rhythm, No Edema, No Gallop, No Murmur Peripheral Pulses: 2+ Radial Pulses (L) Gastrointestinal: normal bowel sounds, soft, tenderness (mild, L-sided) Extremity: Normal Capillary Refill, No Pedal Edema Neurologic/Psychiatric: Alert, Oriented x3, No Motor/Sensory Deficits Skin: Normal Color, Warm/Dry, Erythema (Below panus, on left) Results Lab Laboratory Tests 05/26/21 12:36: White Blood Count 21.7H, Red Blood Count 5.57H, Hemoglobin 15.8, Hematocrit 49, Mean Corpuscular Volume 88, Mean Corpuscular Hemoglobin 28, Mean Corpuscular Hemoglobin Concent 32, Red Cell Distribution Width 14.5, Platelet Count 402H, Mean Platelet Volume 11.3, Neutrophils (%) (Auto) 88H, Lymphocytes (%) (Auto) 9L , Monocytes (%) (Auto) 3, Eosinophils (%) (Auto) 0, Basophils (%) (Auto) 0, Neutrophils # (Auto) 19.2H, Lymphocytes # (Auto) 1.9, Monocytes # (Auto) 0.6, Eosinophils # (Auto) 0.0, Basophils # (Auto) 0.1, Neutrophils % (Manual) 84, Lymphocytes % (Manual) 9, Monocytes % (Manual) 6, Eosinophils % (Manual) 1, Toxic Granulation 4+, Sodium Level 138, Potassium Level 3.6, Chloride Level 96L, Carbon Dioxide Level 22, Anion Gap 20H, Blood Urea Nitrogen 18, Creatinine 1.08, Estimat Glomerular Filtration Rate 61, BUN/Creatinine Ratio 17, Glucose Level 181H, Lactic Acid Level 2.79*H, Calcium Level 10.1, Corrected Calcium 10.2H, Total Bilirubin 0.4, Aspartate Amino Transf (AST/SGOT) 38H, Alanine Aminotransferase (ALT/SGPT) 32, Alkaline Phosphatase 114, Total Protein 8.2, Albumin 3.9, Lipase 27 05/26/21 14:48: Lactic Acid Level 1.01 05/26/21 17:51: Lactic Acid Level 1.57 05/26/21 20:01: Glucometer 123H 05/27/21 05:58: White Blood Count 11.0, Red Blood Count 3.88, Hemoglobin 10.9#L, Hematocrit 35, Mean Corpuscular Volume 90, Mean Corpuscular Hemoglobin 28, Mean Corpuscular Hemoglobin Concent 31L, Red Cell Distribution Width 14.5, Platelet Count 266, Mean Platelet Volume 11.1, Immature Granulocyte % (Auto) 0, Neutrophils (%) (Auto) 71, Lymphocytes (%) (Auto) 22, Monocytes (%) (Auto) 6, Eosinophils (%) (Auto) 0, Basophils (%) (Auto) 1, Neutrophils # (Auto) 7.8, Lymphocytes # (Auto) 2.5, Monocytes # (Auto) 0.6, Eosinophils # (Auto) 0.0, Basophils # (Auto) 0.1, Immature Granulocyte # (Auto) 0.0, Sodium Level 139, Potassium Level 3.5L, Chloride Level 110#H, Carbon Dioxide Level 18L, Anion Gap 11, Blood Urea Nitrogen 14, Creatinine 0.74, Estimat Glomerular Filtration Rate 97, BUN/Creatinine Ratio 19, Glucose Level 90, Calcium Level 8.0L, Corrected Calcium 8.9, Total Bilirubin 0.3, Aspartate Amino Transf (AST/SGOT) 23, Alanine Aminotransferase (ALT/SGPT) 20, Alkaline Phosphatase 63, Total Protein 5.6L, Albumin 2.9L Assessment/Plan Assessment/Plan Assessment/Plan Left-sided abdominal pain Colitis Nausea and vomiting Diarrhea Sepsis Dehydration GERD Clear liquid diet Bowel rest IV fluids Continue ceftriaxone/flagyl conservative management at this time will plan egd/colonoscopy as outpatient as long as continues to improve KENNEY TONG DO 05/27/21 1311: Subjective Time Seen by a Provider: 11:19 Subjective/Events-last exam Pt seen and examined, she is sitting up in bed eating clears. States minimal abdominal pain, much better than yesterday. +Flatus Review of Systems General: Fatigue; No Malaise HEENT: No Head Aches, No Visual Changes Pulmonary: No Dyspnea, No Cough Cardiovascular: No: Chest Pain, Palpitations Gastrointestinal: Abdominal Pain; No: Nausea, Vomiting Genitourinary: No Dysuria, No Frequency Objective Exam General Appearance: No Apparent Distress, Obese Respiratory: Lungs Clear, Normal Breath Sounds, No Accessory Muscle Use, No Respiratory Distress Cardiovascular: Regular Rate, Rhythm, No Murmur Gastrointestinal: normal bowel sounds, soft, tenderness (mild, L-sided), hernia (Large umbilical hernia) Neurologic/Psychiatric: Alert, Oriented x3 Skin: Normal Color, Warm/Dry, Erythema (Below panus, on left) Assessment/Plan Assessment/Plan Assessment/Plan Left-sided abdominal pain, Colitis Nausea/vomiting, Diarrhea - all improving Incarcerated umbilical hernia GERD Increase to soft diet, cont. IV fluids, encourage ambulation and IS use. Continue ceftriaxone/flagyl and consider switching to oral. Conservative management at this time and will plan egd/colonoscopy as outpatient as long as continues to improve. If pt has umbilical pain....could discuss hernia repair as an outpt. Supervisory-Addendum Brief Verification & Attestation Participated in pt care: history, MDM, physical Personally performed: exam, history, MDM, supervision of care Care discussed with: Medical Student Procedures: n/a Verification and Attestation of Medical Student E/M Service A medical student performed and documented this service. I then reviewed and verified all information documented by the medical student and made modifications to such information, when appropriate. I personally performed a physical exam, medical decision making and then discussed any differences between the notes and made revisions as necessary to create one note. Kenney Tong , 05/27/21 , 13:13 AGUSTIN STONE May 27, 2021 07:22 KENNEY TONG DO May 27, 2021 13:11
[2021-05-27 08:01] VITALS: BP 100/60
[2021-05-27] MEDS: DOCUSATE SODIUM 100 MG (COLACE) CAP PO SCH ×2 (09:54→19:37)
[2021-05-27 11:15] VITALS: BP 135/85
[2021-05-27] MEDS ORDERED: cefTRIAXone 1 GM PRE-MIX 50 ML IV SCH (14:00)
[2021-05-27 16:00] VITALS: BP 97/56
[2021-05-27] MEDS: ENOXAPARIN 40 MG/0.4 ML (LOVENOX) SYR SC SCH (19:37)
[2021-05-27 20:00] VITALS: BP 114/64
[2021-05-28 00:59] VITALS: BP 112/65
[2021-05-28] MEDS: metroNIDAZOLE 500MG/100ML IVPB 100 ML IV SCH (01:26)
[2021-05-28 04:13] VITALS: BP 116/65
[2021-05-28] MEDS: inSUlin ASPART (NovoLOG) 1 UNIT/0.01 ML (CHARGE PER UNIT) SC SCH ×2 (05:56→11:26)
[2021-05-28 05:58] LABS: BASOPHILS # (AUTO) 0.1 10^3/uL (0.0-0.1); BASOPHILS % (AUTO) 1 % (0-10); EOSINOPHILS # (AUTO) 0.1 10^3/uL (0.0-0.3); EOSINOPHILS % (AUTO) 2 % (0-10); HEMATOCRIT 36 % (35-52); HEMOGLOBIN 11.2 g/dL (11.5-16.0); LYMPHOCYTES # (AUTO) 2.7 10^3/uL (1.0-4.0); LYMPHOCYTES % (AUTO) 46 % (12-44); MEAN CORPUSCULAR HEMOGLOBIN 28 pg (25-34); MEAN CORPUSCULAR HGB CONC 31 g/dL (32-36); MEAN CORPUSCULAR VOLUME 92 fL (80-99); MEAN PLATELET VOLUME 11.9 fL (9.0-12.2); MONOCYTES # (AUTO) 0.4 10^3/uL (0.0-1.0); MONOCYTES % (AUTO) 7 % (0-12); NEUTROPHILS # (AUTO) 2.5 10^3/uL (1.8-7.8); NEUTROPHILS % (AUTO) 43 % (42-75); PLATELET COUNT 244 10^3/uL (130-400); WHITE BLOOD COUNT 5.7 10^3/uL (4.3-11.0)
[2021-05-28 06:20] LABS: ALBUMIN 2.8 GM/DL (3.2-4.5); BILIRUBIN,TOTAL 0.2 MG/DL (0.1-1.0); CALCIUM 8.2 MG/DL (8.5-10.1); CREATININE SERUM 0.74 MG/DL (0.60-1.30); POTASSIUM 3.8 MMOL/L (3.6-5.0); TOTAL PROTEIN 5.9 GM/DL (6.4-8.2)
[2021-05-28] MEDS ORDERED: SUCR1TAB PO (08:55)
[2021-05-28] MEDS ORDERED: GABA300C PO (08:55)
[2021-05-28] MEDS ORDERED: CALC-938 PO (08:55)
[2021-05-28 09:01] VITALS: BP 132/74
[2021-05-28] MEDS: DOCUSATE SODIUM 100 MG (COLACE) CAP PO SCH (09:04)
[2021-05-28] MEDS: ONDANSETRON 4 MG/2 ML (SDV) Z0FRAN IV PRN (09:07)
--- NOTE | 2021-05-28 09:24 | Progress Note - Surgery ---
Subjective Date Seen by a Provider: May 28, 2021 Time Seen by a Provider: 09:20 Subjective/Events-last exam Patient tried eating this morning and worsening diarrhea. No blood. No abdominal pain. Denies n/v fever sweats chills shortness of breath or chest pain. Focused Exam Lactate Level 05/26/21 12:36: Lactic Acid Level 2.79*H 05/26/21 14:48: Lactic Acid Level 1.01 05/26/21 17:51: Lactic Acid Level 1.57 Objective Exam Vital Signs Date Time Temp Pulse Resp B/P (MAP) Pulse Ox O2 Delivery O2 Flow Rate FiO2 05/28/21 09:01 18 20 132/74 (93) 98 Room Air 05/28/21 07:20 56 05/28/21 04:13 36.7 58 20 116/65 (82) 99 Room Air 05/28/21 01:00 57 05/28/21 00:59 37.2 56 20 112/65 (81) 96 Room Air 05/27/21 22:33 Room Air 05/27/21 20:25 Room Air 05/27/21 20:00 36.6 129 20 114/64 (81) 93 Room Air 05/27/21 19:00 77 05/27/21 16:00 36.7 52 18 97/56 (70) 98 Room Air 05/27/21 12:39 58 05/27/21 11:15 37.2 70 20 135/85 (102) 98 Room Air I & O 05/28/21 07:00 Intake Total 4081 ml Balance 4081 ml Capillary Refill : Less Than 3 Seconds General Appearance: No Apparent Distress, Chronically ill HEENT: PERRL/EOMI, Normal ENT Inspection Neck: Normal Inspection, Non Tender Respiratory: Chest Non Tender, No Accessory Muscle Use, No Respiratory Distress Cardiovascular: Regular Rate, Rhythm, No JVD Peripheral Pulses: 2+ Radial Pulses (L) Gastrointestinal: soft, no organomegaly; No tenderness; hernia (umbilical hernia) Extremity: Normal Capillary Refill, Normal Inspection, Normal Range of Motion, Non Tender, No Calf Tenderness, No Pedal Edema Neurologic/Psychiatric: Alert, Oriented x3, No Motor/Sensory Deficits, Normal Mood/Affect Skin: Normal Color, Warm/Dry Lymphatic: No Adenopathy Results Lab Laboratory Tests 05/27/21 11:13: Glucometer 87 05/27/21 15:45: Glucometer 82 05/27/21 20:59: Glucometer 83 05/28/21 05:22: White Blood Count 5.7, Red Blood Count 3.94, Hemoglobin 11.2L, Hematocrit 36, Mean Corpuscular Volume 92, Mean Corpuscular Hemoglobin 28, Mean Corpuscular Hemoglobin Concent 31L, Red Cell Distribution Width 14.5, Platelet Count 244, Mean Platelet Volume 11.9, Immature Granulocyte % (Auto) 0, Neutrophils (%) (Auto) 43, Lymphocytes (%) (Auto) 46H, Monocytes (%) (Auto) 7, Eosinophils (%) (Auto) 2, Basophils (%) (Auto) 1, Neutrophils # (Auto) 2.5, Lymphocytes # (Auto) 2.7, Monocytes # (Auto) 0.4, Eosinophils # (Auto) 0.1, Basophils # (Auto) 0.1, Immature Granulocyte # (Auto) 0.0, Sodium Level 140, Potassium Level 3.8, Chloride Level 110H, Carbon Dioxide Level 22, Anion Gap 8, Blood Urea Nitrogen 9, Creatinine 0.74, Estimat Glomerular Filtration Rate 97, BUN/Creatinine Ratio 12, Glucose Level 85, Calcium Level 8.2L, Corrected Calcium 9.2, Total Bilirubin 0.2, Aspartate Amino Transf (AST/SGOT) 22, Alanine Aminotransferase (ALT/SGPT) 17, Alkaline Phosphatase 60, Total Protein 5.9L, Albumin 2.8L 05/28/21 05:56: Glucometer 86 Microbiology 05/26/21 Stool Culture - Preliminary, Resulted 05/26/21 Blood Culture - Preliminary, Resulted No growth Assessment/Plan Assessment/Plan Assessment/Plan Left-sided abdominal pain, Colitis Nausea/vomiting, Diarrhea - all improving Incarcerated umbilical hernia GERD Increase to soft diet, cont. IV fluids, encourage ambulation and IS use. Continue abx. Conservative management at this time and will plan egd/colonoscopy as outpatient as long as continues to improve. If pt has umbilical pain....could discuss hernia repair as an outpt. MONIQUE JOVEL DO May 28, 2021 09:24
[2021-05-28] MEDS ORDERED: CEFD300C3 PO (13:13)
[2021-05-28] MEDS ORDERED: METR-145 PO (13:13)
--- NOTE | 2021-05-28 13:19 | Discharge Summary ---
Discharge Summary Hospital Course Hospital Course Date of Admission: May 26, 2021 at 16:15 Admission Diagnosis : Colitis Family Physician/Provider: Carmen Carpio Date of Discharge: 05/28/21 Discharge Diagnosis: Colitis Hospital Course: From HPI: "This is a 55yoWF clinic patient of [facility] who has a h/o cardiac cath due to CP with right femoral hematoma/aneurysm and last colonoscopy 2 yrs ago at [facility] which revealed diverticulosis who presented to the [facility] ER due to abdominal pain and N/V and diverticulitis on CT scan placed on IV abx and CLD and Dr Mckeon consulted. Patient feels better now and is having no pain." Pt continued on IV antibiotics and advanced diet while inpatient, c diff and stool culture negative. Discharged to complete cefdinir and metronidazole course. Labs and Pending Lab Test: Laboratory Tests 05/27/21 15:45: Glucometer 82 05/27/21 20:59: Glucometer 83 05/28/21 05:22: White Blood Count 5.7, Red Blood Count 3.94, Hemoglobin 11.2L, Hematocrit 36, Mean Corpuscular Volume 92, Mean Corpuscular Hemoglobin 28, Mean Corpuscular Hemoglobin Concent 31L, Red Cell Distribution Width 14.5, Platelet Count 244, Mean Platelet Volume 11.9, Immature Granulocyte % (Auto) 0, Neutrophils (%) (Auto) 43, Lymphocytes (%) (Auto) 46H, Monocytes (%) (Auto) 7, Eosinophils (%) (Auto) 2, Basophils (%) (Auto) 1, Neutrophils # (Auto) 2.5, Lymphocytes # (Auto) 2.7, Monocytes # (Auto) 0.4, Eosinophils # (Auto) 0.1, Basophils # (Auto) 0.1, Immature Granulocyte # (Auto) 0.0, Sodium Level 140, Potassium Level 3.8, Chloride Level 110H, Carbon Dioxide Level 22, Anion Gap 8, Blood Urea Nitrogen 9, Creatinine 0.74, Estimat Glomerular Filtration Rate 97, BUN/Creatinine Ratio 12, Glucose Level 85, Calcium Level 8.2L, Corrected Calcium 9.2, Total Bilirubin 0.2, Aspartate Amino Transf (AST/SGOT) 22, Alanine Aminotransferase (ALT/SGPT) 17, Alkaline Phosphatase 60, Total Protein 5.9L, Albumin 2.8L 05/28/21 05:56: Glucometer 86 05/28/21 11:15: Glucometer 87 Microbiology 05/26/21 Stool Culture - Preliminary, Resulted 05/26/21 Blood Culture - Preliminary, Resulted No growth Home Meds Active Reported Calcium Carbonate 300 Mg Tab.chew 300-600 Mg PO UD PRN Sucralfate 1 Gm Tablet 1 Gm PO ACHS PRN Neurontin (Gabapentin) 300 Mg Capsule 300 Mg PO BID Tramadol HCl 50 Mg Tablet 50-100 Mg PO QID PRN Pantoprazole Sodium 40 Mg Tablet.dr 40 Mg PO DAILY Multivitamin 1 Each Tablet 1 Each PO DAILY Lisinopril 10 Mg Tablet 10 Mg PO DAILY Ibuprofen 800 Mg Tablet 800 Mg PO Q8H PRN Cyclobenzaprine HCl 10 Mg Tablet 10 Mg PO TID PRN Assessment/Pt DC Instructions Follow up with Dr. Amaya within a week of discharge. Follow up with Dr. Shepard in 2 weeks. Discharge Diet: Soft Diet (bland, soft diet, advance as tolerated) Activity as Tolerated: Yes Discharge Physical Examination Allergies: Coded Allergies: No Known Drug Allergies (Unverified , 05/26/21) General Appearance: No Apparent Distress, WD/WN Respiratory: Lungs Clear, Normal Breath Sounds Cardiovascular: Regular Rate, Rhythm, No Murmur Gastrointestinal: Normal Bowel Sounds, Non Tender Extremity: No Pedal Edema Skin: Normal Color, Warm/Dry Neurologic/Psychiatric: Alert, Normal Mood/Affect Copy Copies To 1: MONSERRAT AMAYA MD, BETHANY N MD May 28, 2021 13:18
--- NOTE | 2021-05-30 13:38 | Physician Query Clarification ---
PQ-Uncertain Diagnosis Admission/Discharge Admission Date: May 26, 2021 at 16:15 Discharge Date: May 28, 2021 at 14:30 Dr. Babb The medical record reflects the following clinical scenario: History/Risk Factors: colitis, diverticulosis, HTN,GERD Clinical Findings: T35.4, R 106, R 18, BP 99/32, Lactic acid 2.79 Treatment: IV Ceftriaxone, IV Metronidazole Question: Is sepsis a clinically valid diagnosis? Sepsis was documented in the ER and Dr. Molina PN's with no further documentation in the medical record. Please document a response in Progress Note or Discharge Summary. 1. Yes, clinically valid, condition resolved. 2. No, condition ruled out. 3. Other, with explanation of clinical findings. 4. Undetermined, no explanation for clinical findings. PHYSICIAN RESPONSE Diagnosis clinically valid: Yes, Conditon resolved Please remember a lack of response to the above will prompt a phone page by CDI/Coding staff. In responding to this query, please exercise your independent professional judgment. The purpose of this communication is to more accurately reflect the complexity of your patients condition. The fact that a question is asked does not imply that any particular answer is desired or expected. Thank you for your timely response to this clarification. Requestors name: Tigre THIS PHYSICIAN QUERY FORM IS A PERMANENT PART OF THE MEDICAL RECORD TIGRE REYNOLDS May 30, 2021 13:38 CAROLE BABB MD May 30, 2021 14:01
--- NOTE | 2021-05-30 13:47 | Physician Query Clarification ---
PQ-Further Specificity Admission/Discharge Admission Date: May 26, 2021 at 16:15 Discharge Date: May 28, 2021 at 14:30 Dr. Babb, The medical record reflects the following clinical scenario: History/Risk Factors: colitis, diverticulosis, HTN, GERD Clinical Findings: LUQ pain, N/V uncontrolled diarrhea, WBC 21.7 with left shift, Lactic acid 2.79, CT scan shows evidence of colitis with diverticular disease in the left descending colon Treatment: IVF, IVP Zafron, IV Protonix, IVP Toradol, IV Metronidazole, IV Ceftriaxone Question: Can you further specify the type of colitis per the clinical indicators above? Please document a response in the Progress Notes or Discharge Summary. 1. infectious colitis 2. noninfectious colitis 3. Other, with explanation of the clinical findings. 4. Clinically undetermined, no explanation for the clinical findings. PHYSICIAN RESPONSE Can you specify per above: 1 Please remember a lack of response to the above will prompt a phone page by CDI/Coding staff. In responding to this query, please exercise your independent professional judgment. The purpose of this communication is to more accurately reflect the complexity of your patients condition. The fact that a question is asked does not imply that any particular answer is desired or expected. Thank you for your timely response to this clarification. Requestors name: Tig[employer] THIS PHYSICIAN QUERY FORM IS A PERMANENT PART OF THE MEDICAL RECORD TIGRE REYNOLDS May 30, 2021 13:47 CAROLE BABB MD May 30, 2021 14:01
== END 2021-05-28 14:30 | disposition home or self-care (01) | DRG 872 ==
LOC: EDUNIT# 12:09 → ER FS 12:11 → 4TH 16:15
PROVIDERS: ADMIT Internal Medicine; ATTEND Family Medicine
DX: A41.9 Sepsis, unspecified organism (principal); A09 Infectious gastroenteritis and colitis, unspecified; K40.30 Unilateral inguinal hernia, with obstruction, without gangrene, not specified as recurrent; E86.0 Dehydration; F41.9 Anxiety disorder, unspecified; I10 Essential (primary) hypertension; K57.90 Diverticulosis of intestine, part unspecified, without perforation or abscess without bleeding; K21.9 Gastro-esophageal reflux disease without esophagitis; M19.91 Primary osteoarthritis, unspecified site; H54.7 Unspecified visual loss; Z79.1 Long term (current) use of non-steroidal anti-inflammatories (NSAID); Z79.82 Long term (current) use of aspirin; Z79.52 Long term (current) use of systemic steroids
CPT/HCPCS: 36415; 74176; 80053; 82947; 83605; 83690; 85007; 85025; 85027; 87015; 87040; 87045; 87046; 87324; 87449; 87899

== ENCOUNTER 2021-07-26 05:34 | Outpatient (CLI) | payer MEDICARE ==
[~2021-07-26] VITALS: Ht 170 cm; Wt 101.0 kg
[~2021-07-26 05:34] MED LIST changes: +CALC-938 PO; +CEFD300C3 PO; +GABA300C PO; +METR-145 PO; +SUCR1TAB PO
== END 2021-07-27 07:01 | disposition home or self-care (01) ==
LOC: PREOP 05:34
PROVIDERS: ATTEND Surgery
DX: Z01.818 Encounter for other preprocedural examination (principal)

== ENCOUNTER 2021-08-07 07:06 | Day surgery (SDC) | payer MEDICARE ==
[~2021-08-07] VITALS: Ht 170 cm; Wt 101.0 kg
[2021-08-07] MEDS ORDERED: LACTATED RINGERS 1,000 ML IV ONE (07:24)
[2021-08-07] MEDS ORDERED: LACTATED RINGERS 1,000 ML IV STA (07:24)
[2021-08-07] MEDS ORDERED: HURRICAINE EXT TUBE (BENZOCAINE) XX PRN (07:30)
[2021-08-07 07:34] VITALS: BP 130/73
[2021-08-07] MEDS ORDERED: PROPOFOL INJECTION 50 ML IV ONE (07:38)
--- NOTE | 2021-08-07 08:09 | Progress Note-Pre Operative ---
Pre-Operative Progress Note H&P Reviewed The H&P was reviewed, patient examined and no changes noted. Date Seen by Provider: Aug 07, 2021 Time Seen by Provider: 08:09 Date H&P Reviewed: Aug 07, 2021 Time H&P Reviewed: 08:09 Pre-Operative Diagnosis: hx colitis, left sided abdominal pain, Gerd MONIQUE JOVEL DO Aug 07, 2021 08:09
[2021-08-07] MEDS ORDERED: proPOfol 200 MG/20 ML (DIPRIVAN) VIAL IV ONE (08:55)
--- NOTE | 2021-08-07 09:18 | Progress Note-Post Operative ---
Post-Operative Progess Note Surgeon (s)/Sheriffs (s) Surgeon MONIQUE JOVEL DO Sheriffs: none Pre-Operative Diagnosis hx colitis, left sided abdominal pain, Gerd Post-Operative Diagnosis Hiatal hernia, gastric polyps, diverticulosis Procedure & Operative Findings Date of Procedure 08/07/21 Procedure Performed/Findings EGD with biopsy x2. Colonoscopy. Anesthesia Type per BULLET CHARGING MACHINE OPERATOR Estimated Blood Loss Estimated blood loss (mL): none Specimens/Packing Specimens Removed Biopsy antrum x1, GE junction x1. MONIQUE JOVEL DO Aug 07, 2021 09:17
--- NOTE | 2021-08-07 09:22 | Discharge Inst-Simple/Standard ---
Discharge Inst-Standard Discharge Medications New, Converted or Re-Newed RX: Transmitted to Pharmacy Patient Instructions/Follow Up Plan of Care/Instructions/FU: 2 weeks Drea Activity as Tolerated: Yes Discharge Diet: Regular Diet (High fiber) MONIQUE JOVEL DO Aug 07, 2021 09:20
[2021-08-07 09:23] VITALS: BP 148/82
[2021-08-07 09:30] VITALS: BP 148/82
[2021-08-07 10:05] VITALS: BP 117/84
--- NOTE | 2021-08-07 12:49 | OPERATIVE REPORT ---
DATE OF SERVICE: 08/07/2021 PREOPERATIVE DIAGNOSES: History of colitis, left-sided abdominal pain, and gastroesophageal reflux disease. POSTOPERATIVE DIAGNOSES: Hiatal hernia, gastric polyps, diverticulosis. PROCEDURE: Esophagogastroduodenoscopy with biopsy of the antrum and GE junction, colonoscopy. SURGEON: Monique Shepard DO ANESTHESIA: Per CHOPPER OPERATOR. ESTIMATED BLOOD LOSS: None. COMPLICATIONS: None. INDICATIONS: The patient is a 55-year-old female with a history of colitis and left-sided abdominal pain. She also with GERD symptoms. She understands risks and benefits of procedure and wishes to proceed. Consent was signed in the chart. DESCRIPTION OF PROCEDURE: The patient was taken to the endoscopy suite, placed in left lateral recumbent position. Timeout was performed. Scope was inserted in mouth, down the esophagus, stomach and into the duodenum without difficulty. No polyps, masses, or ulcerations within the duodenum. Scope was slowly retracted back to stomach where it was further insufflated. No masses or ulcerations within the stomach. Multiple gastric polyps present. Biopsy of the antrum was obtained. Scope was retroflexed noting hiatal hernia, no other pathology. Scope was returned to its normal position, slowly withdrawn to distal esophagus. No polyps, masses, or ulcerations. Biopsy of GE junction was obtained. Scope was slowly retracted back until completely removed. Digital rectal exam was performed. No palpable polyps, masses, or ulcerations. Scope was inserted in the rectum and advanced all the way to cecum with minimal difficulty. Prep was adequate with irrigation and suction. Scope was slowly retracted back. No polyps, masses, or ulcerations in the cecum, ascending, transverse, descending colon. In the sigmoid colon, significant amount of diverticulosis present. Scope was then continuously retracted back into the rectum, where it was also retroflexed noting no other pathology. Scope was returned to its normal position, slowly withdrawn until completely removed. The patient tolerated procedure well without any complications, taken to recovery room in stable condition. RECOMMENDATIONS: The patient will need repeat colonoscopy in 10 years unless family history of colon cancer, which then be 5 years or personal history of polyps, which would then be 5 years. Any issues before that be seen at that time. Recommend high-fiber diet due to diverticulosis. We would continue on current medications for reflux. The patient will follow up in a couple of weeks. Any issues be seen at that time. Job ID: [id number] DocumentID: [id number] Dictated Date: 08/07/2021 09:25:24 Card Maker Date: 08/07/2021 12:47:57 Dictated By: MONIQUE SHEPARD DO
--- NOTE | 2021-08-07 14:40 | Anesthesia-General Post-Op ---
MAC Patient Condition Mental Status/LOC: Same as Preop Cardiovascular: Satisfactory Nausea/Vomiting: Absent Respiratory: Satisfactory Pain: Controlled Complications: Absent Post Op Complications Complications None Follow Up Care/Instructions Patient Instructions None needed. Anesthesiology Discharge Order Discharge Order Patient is doing well, no complaints, stable vital signs, no apparent adverse anesthesia problems. No complications reported per nursing. NINA DIAS CRNA Aug 07, 2021 14:40
== END 2021-08-07 10:15 | disposition home or self-care (01) ==
LOC: ENDO 07:06
PROVIDERS: ATTEND Surgery
DX: K31.7 Polyp of stomach and duodenum (principal); K44.9 Diaphragmatic hernia without obstruction or gangrene; K57.30 Diverticulosis of large intestine without perforation or abscess without bleeding; K21.9 Gastro-esophageal reflux disease without esophagitis; E66.01 Morbid (severe) obesity due to excess calories; Z68.34 Body mass index [BMI] 34.0-34.9, adult; Z87.19 Personal history of other diseases of the digestive system; Z79.899 Other long term (current) drug therapy

== ENCOUNTER 2022-03-20 07:36 | Emergency (ER) | payer MEDICARE, MEDICAID ==
[~2022-03-20] VITALS: Ht 172.7 cm; Wt 99.7 kg
--- NOTE | 2022-03-20 07:52 | ED Chest Pain ---
General Stated Complaint: CHEST PAINS Source: patient Exam Limitations: no limitations History of Present Illness Date Seen by Provider: Mar 20, 2022 Time Seen by Provider: 07:40 Initial Comments Patient is a 56-year-old female, moderately obese who presents to the emergency department with a chief complaint of left-sided chest pain. Patient states that she has had chest pain off and on "all night". She states it seems to have gotten a little bit more intense at about 4 AM. It does not radiate. It has made her nauseous she took some Zofran as well as a baby aspirin last night a little after 8 PM she is also taken some Nexium. She is not a smoker. No family history of early coronary artery disease. Nothing makes the pain any worse and nothing is made it any better. She rates it currently about a "8". Had colitis within the last month finished antibiotics. No bowel or bladder complaints. No swelling in her legs. No history of blood clot. 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 (1 baby) NTG SL UNDERCUTTER: No Associated Symptoms: nausea/vomiting, shortness of breath Allergies and Home Medications Allergies Coded Allergies: No Known Drug Allergies (Unverified , 05/26/21) Patient Home Medication List Home Medication List Reviewed: Yes Calcium Carbonate (Calcium Carbonate) 300 Mg Tab.chew, 300-600 MG PO UD PRN for INDIGESTION, (Reported) Entered as Reported by: ERA MCCRACKEN on 05/28/21 0855 Cefdinir (Cefdinir) 300 Mg Capsule, 300 MG PO BID Prescribed by: CAROLE AGOSTO on 05/28/21 1313 Cyclobenzaprine HCl (Cyclobenzaprine HCl) 10 Mg Tablet, 10 MG PO TID PRN for MUSCLE SPASMS, (Reported) Entered as Reported by: MUMTAZ JACK on 02/21/21 0739 Gabapentin (Neurontin) 300 Mg Capsule, 300 MG PO BID, (Reported) Entered as Reported by: ERA MCCRACKEN on 05/28/21 0855 Ibuprofen (Ibuprofen) 800 Mg Tablet, 800 MG PO Q8H PRN for PAIN-MILD (1-4), (Reported) Entered as Reported by: MUMTAZ JACK on 02/21/21738 Lisinopril (Lisinopril) 10 Mg Tablet, 10 MG PO DAILY, (Reported) Entered as Reported by: MUMTAZ JACK on 02/21/21738 Metronidazole (Metronidazole) 500 Mg Tablet, 500 MG PO TID Prescribed by: CAROLE AGOSTO on 05/28/21 1313 Multivitamin (Multivitamin) 1 Each Tablet, 1 EACH PO DAILY, (Reported) Entered as Reported by: MUMTAZ JACK on 02/21/21738 Pantoprazole Sodium (Pantoprazole Sodium) 40 Mg Tablet.dr, 40 MG PO DAILY, (Re ported) Entered as Reported by: MUMTAZ JACK on 02/21/21738 Sucralfate (Sucralfate) 1 Gm Tablet, 1 GM PO ACHS PRN for GI UPSET, (Reported) Entered as Reported by: ERA MCCRACKEN on 05/28/21 0855 Tramadol HCl (Tramadol HCl) 50 Mg Tablet, 50-100 MG PO QID PRN for PAIN-SEVERE (8-10), (Reported) Entered as Reported by: MUMTAZ JACK on 02/21/21738 Review of Systems Review of Systems Constitutional: see HPI EENTM: No Symptoms Reported Respiratory: Shortness of Air Cardiovascular: Chest Pain Gastrointestinal: Nausea Genitourinary: No Symptoms Reported Musculoskeletal: no symptoms reported Skin: no symptoms reported Psychiatric/Neurological: No Symptoms Reported All Other Systems Reviewed Negative Unless Noted: Yes Past Gbchwwu-Upxkdd-Bxkbyh Hx Immunizations Up To Date Tetanus Booster (TDap): Unknown Seasonal Allergies Seasonal Allergies: No Past Medical History Surgery/Hospitalization HX: None Surgeries: Yes (HEART CATH WITHOUT INTERVENTION, ARTHROSCOPY LEFT KNEE) Section, Gallbladder, Orthopedic Respiratory: No Cardiac: Yes Hypertension Neurological: No Reproductive Disorders: No Genitourinary: Yes (OVER-ACTIVE BLADDER) Gastrointestinal: Yes (INFLAMMATORY BOWEL) Hiatal Hernia Musculoskeletal: Yes (KNEE REPLACEMENT-LEFT) Scoliosis Endocrine: No HEENT: No Cancer: No Psychosocial: No Anxiety Integumentary: No Blood Disorders: No Adverse Reaction/Blood Tranf: No Family Medical History Heart Disease Physical Exam Vital Signs Vital Signs - First Documented 03/20/22 07:40 Temp 36.8 Pulse 83 Resp 16 B/P (MAP) 131/101 (111) Pulse Ox 99 O2 Delivery Room Air Capillary Refill : Height, Weight, BMI Height: 5'7" Weight: 230lbs. oz. 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 Norm as Tested Skin: Normal Color, Warm/Dry Progress/Results/Core Measures Results/Orders Lab Results Laboratory Tests Test 03/20/22 07:46 03/20/22 09:30 Range/Units White Blood Count 8.3 4.3-11.0 10^3/uL Red Blood Count 4.87 3.80-5.11 10^6/uL Hemoglobin 14.6 11.5-16.0 g/dL Hematocrit 45 35-52 % Mean Corpuscular Volume 91 80-99 fL Mean Corpuscular Hemoglobin 30 25-34 pg Mean Corpuscular Hemoglobin Concent 33 32-36 g/dL Red Cell Distribution Width 13.4 10.0-14.5 % Platelet Count 263 130-400 10^3/uL Mean Platelet Volume 11.5 9.0-12.2 fL Immature Granulocyte % (Auto) 0 % Neutrophils (%) (Auto) 79 H 42-75 % Lymphocytes (%) (Auto) 15 12-44 % Monocytes (%) (Auto) 6 0-12 % Eosinophils (%) (Auto) 0 0-10 % Basophils (%) (Auto) 0 0-10 % Neutrophils # (Auto) 6.6 1.8-7.8 10^3/uL Lymphocytes # (Auto) 1.2 1.0-4.0 10^3/uL Monocytes # (Auto) 0.5 0.0-1.0 10^3/uL Eosinophils # (Auto) 0.0 0.0-0.3 10^3/uL Basophils # (Auto) 0.0 0.0-0.1 10^3/uL Immature Granulocyte # (Auto) 0.0 0.0-0.1 10^3/uL Sodium Level 134 L 135-145 MMOL/L Potassium Level 4.5 3.6-5.0 MMOL/L Chloride Level 100 98-107 MMOL/L Carbon Dioxide Level 23 21-32 MMOL/L Anion Gap 11 5-14 MMOL/L Blood Urea Nitrogen 12 7-18 MG/DL Creatinine 0.80 0.60-1.30 MG/DL Estimat Glomerular Filtration Rate 88 BUN/Creatinine Ratio 15 Glucose Level 93 70-105 MG/DL Calcium Level 9.3 8.5-10.1 MG/DL Corrected Calcium 9.5 8.5-10.1 MG/DL Magnesium Level 1.9 1.6-2.4 MG/DL Total Bilirubin 1.3 H 0.1-1.0 MG/DL Aspartate Amino Transf (AST/SGOT) 484 H 5-34 U/L Alanine Aminotransferase (ALT/SGPT) 204 H 0-55 U/L Alkaline Phosphatase 222 H 40-136 U/L Myoglobin 73.5 10.0-92.0 NG/ML Troponin I < 0.028 <0.028 NG/ML Total Protein 8.4 H 6.4-8.2 GM/DL Albumin 3.8 3.2-4.5 GM/DL Lipase 12 8-78 U/L Prothrombin Time 12.7 12.2-14.7 SEC INR Comment 0.9 0.8-1.4 Activated Partial Thromboplast Time 28 24-35 SEC My Orders Orders - NINI ESTEBAN MD Cbc With Automated Diff (03/20/22 07:47) Magnesium (03/20/22 07:47) Chest 1 View, Ap/Pa Only (03/20/22 07:47) Ekg Tracing (03/20/22 07:47) Comprehensive Metabolic Panel (03/20/22 07:47) Myoglobin Serum (03/20/22 07:47) Protime With Inr (03/20/22 07:47) Partial Thromboplastin Time (03/20/22 07:47) O2 (03/20/22 07:47) Monitor-Rhythm Ecg Trace Only (03/20/22 07:47) Ed Iv/Invasive Line Start (03/20/22 07:47) Troponin I [place] (03/20/22 07:47) Aspirin Chewable Tablet (Baby Aspirin Ch (03/20/22 08:00) Lipase (03/20/22 09:04) Antacid Suspension (Mylanta Suspension (03/20/22 09:15) Lidocaine 2% Viscous 15 Ml (Xylocaine Vi (03/20/22 09:15) Sucralfate Tablet (Carafate Tablet) (03/20/22 09:15) Medications Given in ED Current Medications Medications Dose Ordered Sig/[place] Route Start Time Stop Time Status Last Admin Dose Admin Al Hydrox/Mg Hydrox/Simethicone 30 ml ONCE ONCE PO 03/20/22 09:15 03/20/22 09:16 DC 03/20/22 09:14 30 ML Aspirin 324 mg ONCE ONCE PO 03/20/22 08:00 03/20/22 08:01 DC 03/20/22 08:29 324 MG Lidocaine HCl 5 ml ONCE ONCE PO 03/20/22 09:15 03/20/22 09:16 DC 03/20/22 09:14 5 ML Sucralfate 1 gm ONCE ONCE PO 03/20/22 09:15 03/20/22 09:16 DC 03/20/22 09:14 1 GM Vital Signs/I&O 03/20/22 03/20/22 07:40 10:51 Temp 36.8 Pulse 83 Resp 16 B/P (MAP) 131/101 (111) 126/81 Pulse Ox 99 O2 Delivery Room Air Progress Progress Note : Time: 10:25 Progress Note Patient seen and evaluated, evaluation today includes a "chest pain work-up" with troponin, EKG, chest x-ray basic laboratory studies. Her EKG is unremarkable for any ST segment change. Chest x-ray is "normal". Low concern for acute coronary syndrome as the patient has had pain persistently all night but no elevation in troponin. Heart score would place her in the low risk category. She can be sent home with 1 troponin measurement. Labs are pertinent for significant elevation in her transaminases. She has had previous cholecystectomy and gallstones. She does not appear jaundiced. She is not actively vomiting here in the department, lipase is negative. No periumbilical pain. No focal abdominal point tenderness. Consideration for CT of the abdomen and pelvis however physical exam does not support the need. She is not febrile. Low suspicion for acute infection in the abdomen. She feels better after medications. Recommend continuing her daily medications as prescribed and close follow-up with her doctor with recheck of liver functions in 1 week. Return precautions given, if she starts to turn yellow, has vomiting or diarrhea or high fever she needs to come back to the emergency department. Patient is agreeable with the plan of care. All questions are sought and answered. Patient is stable for discharge. Initial ECG Impression Date: Mar 20, 2022 Initial ECG Impression Time: 07:50 Initial ECG Rate: 74 Initial ECG Rhythm: Normal Sinus Initial ECG Intervals: Normal Initial ECG Impression: Normal Initial ECG Comparisson: No Previous ECG Available Diagnostic Imaging Diagonstic Imaging: Xray Plain Films/CT/US/NM/MRI: chest Comments [facility] [place], [place] NAME: INES GARAY [facility] REC#: [id number] PT STATUS: REG ER : 1965 PHYSICIAN: NINI ESTEBAN MD ADMIT DATE: 03/20/22/ER Signed Date of Exam:03/20/22 CHEST 1 VIEW, AP/PA ONLY EXAMINATION: Chest 1 view HISTORY: Chest pain. COMPARISON: 03/24/2021. FINDINGS: The lung volumes are normal. No focal consolidation is seen. No large pleural effusion or pneumothorax is seen. The cardiomediastinal silhouette is normal in size and contour. No acute osseous abnormality is seen. IMPRESSION: 1. No acute pleuroparenchymal process. Dictated by: Dictated on workstation # [id number] Dict: 03/20/22835 Trans: 03/20/22841 CV [id number] Interpreted by: ANIKA FREIRE DO Electronically signed by: ANIKA FREIRE DO 03/20/22841 Departure Impression Primary Impression: Chest pain Qualified Codes: R07.9 - Chest pain, unspecified Additional Impression: Elevated liver transaminase level Disposition: 01 HOME, SELF-CARE Condition: Improved Departure-Patient Inst. Decision time for Depature: 10:28 Referrals: MONSERRAT AMAYA MD (PCP) Primary Care Physician JACK ASENCIO (Family) Primary Care Physician Patient Instructions: Chest Pain That Is Not Caused by the Heart (DC), Liver Function Test Add. Discharge Instructions: Continue your daily medications as prescribed. You can take ibuprofen, 3 tablets which is 600 mg every 6 hours as needed for pain. Avoid Tylenol products until you are cleared to take them by your primary care doctor. Follow up with your doctor in 1 week. Have your labs drawn [address] before you see Dr Amaya. Come back to the the Emergency Department if you have worsening pain especially with fever over 101, vomiting, diarrhea, vomiting or passing blood in your stool. Copy Copies To 1: MONSERRAT AMAYA MD, KATHRYN M MD Mar 20, 2022 07:52
[2022-03-20] MEDS ORDERED: ASPIRIN 81 MG CHEW (CHILDREN'S ASA) PO ONE (08:00)
[2022-03-20 08:22] LABS: BASOPHILS % (AUTO) 0 % (0-10); EOSINOPHILS % (AUTO) 0 % (0-10); HEMATOCRIT 45 % (35-52); HEMOGLOBIN 14.6 g/dL (11.5-16.0); LYMPHOCYTES # (AUTO) 1.2 10^3/uL (1.0-4.0); LYMPHOCYTES % (AUTO) 15 % (12-44); MEAN CORPUSCULAR HEMOGLOBIN 30 pg (25-34); MEAN CORPUSCULAR HGB CONC 33 g/dL (32-36); MEAN CORPUSCULAR VOLUME 91 fL (80-99); MEAN PLATELET VOLUME 11.5 fL (9.0-12.2); MONOCYTES # (AUTO) 0.5 10^3/uL (0.0-1.0); MONOCYTES % (AUTO) 6 % (0-12); NEUTROPHILS # (AUTO) 6.6 10^3/uL (1.8-7.8); NEUTROPHILS % (AUTO) 79 % (42-75); PLATELET COUNT 263 10^3/uL (130-400); WHITE BLOOD COUNT 8.3 10^3/uL (4.3-11.0)
--- NOTE | 2022-03-20 08:38 | Diagnostic Imaging Report ---
EXAMINATION: Chest 1 view HISTORY: Chest pain. COMPARISON: 03/24/2021. FINDINGS: The lung volumes are normal. No focal consolidation is seen. No large pleural effusion or pneumothorax is seen. The cardiomediastinal silhouette is normal in size and contour. No acute osseous abnormality is seen. IMPRESSION: 1. No acute pleuroparenchymal process. Dictated by: Dictated on workstation # [id number]
[2022-03-20 08:40] LABS: ALBUMIN 3.8 GM/DL (3.2-4.5); POTASSIUM 4.5 MMOL/L (3.6-5.0)
[2022-03-20 08:41] LABS: CALCIUM 9.3 MG/DL (8.5-10.1)
[2022-03-20 08:43] LABS: TOTAL PROTEIN 8.4 GM/DL (6.4-8.2)
[2022-03-20 08:44] LABS: BILIRUBIN,TOTAL 1.3 MG/DL (0.1-1.0)
[2022-03-20 08:46] LABS: CREATININE SERUM 0.8 MG/DL (0.60-1.30)
[2022-03-20 08:49] LABS: MAGNESIUM 1.9 MG/DL (1.6-2.4)
[2022-03-20] MEDS ORDERED: ANTACID SUSP 30 ML UDC (MYLANTA) PO ONE (09:15)
[2022-03-20] MEDS ORDERED: SUCRALFATE 1 GM (CARAFATE) TAB PO ONE (09:15)
[2022-03-20] MEDS ORDERED: LIDOCAINE 2% VISCOUS 15 ML UDC PO ONE (09:15)
[2022-03-20 09:57] LABS: INR 0.9 (0.8-1.4); PROTHROMBIN TIME PATIENT 12.7 SEC (12.2-14.7)
[2022-03-20 10:51] VITALS: BP 126/81
== END 2022-03-20 10:51 | disposition home or self-care (01) ==
LOC: EDUNIT# 07:36 → ER 07:38
DX: R07.89 Other chest pain (principal); R74.01 Elevation of levels of liver transaminase levels; E66.9 Obesity, unspecified; Z68.34 Body mass index [BMI] 34.0-34.9, adult
CPT/HCPCS: 36415; 71045; 80053; 83690; 83735; 83874; 84484; 85025; 85610; 85730; 93005; 93041

== ENCOUNTER 2022-04-15 16:14 | Emergency (ER) | payer MEDICARE, MEDICAID ==
[~2022-04-15] VITALS: Ht 170.2 cm; Wt 103.0 kg
[2022-04-15 17:04] LABS: BILIRUBIN,URINE NEGATIVE (NEGATIVE); CLARITY,URINE CLEAR; COLOR,URINE YELLOW; GLUCOSE, URINE (UA) NEGATIVE (NEGATIVE); KETONES,URINE NEGATIVE (NEGATIVE); LEUKOCYTE ESTERASE ,URINE NEGATIVE (NEGATIVE); NITRITE,URINE NEGATIVE (NEGATIVE); PROTEIN,URINE NEGATIVE (NEGATIVE)
[2022-04-15 17:10] LABS: BACTERIA,URINE NEGATIVE /HPF; SQUAMOUS EPITHELIAL CELL,UR 0-2 /HPF; WBC,URINE 0-2 /HPF
[2022-04-15] MEDS ORDERED: fentaNYL INJ 100 MCG/2 ML AMP IVP ONE (17:15)
[2022-04-15] MEDS ORDERED: ONDANSETRON 4 MG/2 ML (SDV) Z0FRAN IVP ONE (17:15)
--- NOTE | 2022-04-15 17:23 | ED Abdominal Pain ---
General Chief Complaint: Abdominal/GI Problems Stated Complaint: ABDOMINAL PAIN Nursing Triage Note: PT AMB TO TRIAGE WITH COMPLAINT OF ABD PAIN. STATES STARTED IN THE MIDDLE OF THE NIGHT AND IS INTERMITTENT. STATES FEELS ACHY. STATES PAIN IS AROUND HER BELLY BUTTON (REMA PALOMO APRN) History of Present Illness Date Seen by Provider: Apr 15, 2022 Time Seen by Provider: 17:09 Initial Comments Pt presents to ED via POV for periumbilical abdominal pain starting last night. Pt denies eating prior to pain starting. Pt reports she has been unable to eat today. Pt denies fever/chills. Pt reports nausea, denies vomiting. Reports normal BM today. Reports she is normally has small, pebble-like BMs, but today was normal. Denies diarrhea. Denies dysuria, but reports pain is worse with straining to urinate or defecate. Reports pain is worse with movement. Pt has had a cholecystectomy and 2 c-sections. 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 Timing/Duration: 12-24 Hours Location: Periumbilical Radiation: No Radiation Activities at Onset: None Modifying Factors: Worsens With Movement Associated Symptoms: Nausea/Vomiting (REMA PALOMO APRN) Allergies and Home Medications Allergies Coded Allergies: No Known Drug Allergies (Unverified , 05/26/21) Patient Home Medication List Home Medication List Reviewed: Yes (REMA PALOMO APRN) Calcium Carbonate (Calcium Carbonate) 300 Mg Tab.chew, 300-600 MG PO UD PRN for INDIGESTION, (Reported) Entered as Reported by: ERA MCCRACKEN on 05/28/21 0855 Cefdinir (Cefdinir) 300 Mg Capsule, 300 MG PO BID Prescribed by: CAROLE AGOSTO on 05/28/21 1313 Cyclobenzaprine HCl (Cyclobenzaprine HCl) 10 Mg Tablet, 10 MG PO TID PRN for MUSCLE SPASMS, (Reported) Entered as Reported by: MUMTAZ JACK on 02/21/21 0739 Gabapentin (Neurontin) 300 Mg Capsule, 300 MG PO BID, (Reported) Entered as Reported by: ERA MCCRACKEN on 05/28/21 0855 Ibuprofen (Ibuprofen) 800 Mg Tablet, 800 MG PO Q8H PRN for PAIN-MILD (1-4), (Reported) Entered as Reported by: MUMTAZ JACK on 02/21/21738 Lisinopril (Lisinopril) 10 Mg Tablet, 10 MG PO DAILY, (Reported) Entered as Reported by: MUMTAZ JACK on 02/21/21738 Metronidazole (Metronidazole) 500 Mg Tablet, 500 MG PO TID Prescribed by: CAROLE AGOSTO on 05/28/21 1313 Multivitamin (Multivitamin) 1 Each Tablet, 1 EACH PO DAILY, (Reported) Entered as Reported by: MUMTAZ JACK on 02/21/21738 Pantoprazole Sodium (Pantoprazole Sodium) 40 Mg Tablet.dr, 40 MG PO DAILY, (Reported) Entered as Reported by: MUMTAZ JACK on 02/21/21738 Sucralfate (Sucralfate) 1 Gm Tablet, 1 GM PO ACHS PRN for GI UPSET, (Reported) Entered as Reported by: ERA MCCRACKEN on 05/28/21 0855 Tramadol HCl (Tramadol HCl) 50 Mg Tablet, 50-100 MG PO QID PRN for PAIN-SEVERE (8-10), (Reported) Entered as Reported by: MUMTAZ JACK on 02/21/21738 Review of Systems Review of Systems Constitutional: No fever Respiratory: No Symptoms Reported Cardiovascular: No Symptoms Reported Gastrointestinal: Abdominal Pain, Nausea, Poor Appetite Genitourinary: Pain (worsening of abdominal pain with urination) (REMA PALOMO APRN) All Other Systems Reviewed Negative Unless Noted: Yes (REMA PALOMO APRN) Past Nvewtpj-Eczcjb-Aofcpl Hx Patient Social History Tobacco Use?: No Use of E-Cig and/or Vaping dev: No Substance use?: No Alcohol Use?: No Pt feels they are or have been: No (REMA PALOMO APRN) Immunizations Up To Date Tetanus Booster (TDap): Unknown Influenza Vaccine Up-to-Date: No; Not Current First/Initial COVID19 Vaccinat: NO Second COVID19 Vaccination Fabian: NO (REMA PALOMO APRN) Seasonal Allergies Seasonal Allergies: No (REMA PALOMO APRN) Past Medical History Surgery/Hospitalization HX: None Surgeries: Yes (HEART CATH WITHOUT INTERVENTION, ARTHROSCOPY LEFT KNEE) Section, Gallbladder, Orthopedic Respiratory: No Cardiac: Yes Hypertension Neurological: No Reproductive Disorders: No Genitourinary: Yes (OVER-ACTIVE BLADDER) Gastrointestinal: Yes (INFLAMMATORY BOWEL) Hiatal Hernia Musculoskeletal: Yes (KNEE REPLACEMENT-LEFT) Scoliosis Endocrine: No HEENT: No Cancer: No Psychosocial: No Anxiety Integumentary: No Blood Disorders: No Adverse Reaction/Blood Tranf: No (REMA PALOMO APRN) Family Medical History Heart Disease (REMA PALOMO APRN) Physical Exam Vital Signs Vital Signs - First Documented 04/15/22 16:20 Pulse 86 Resp 17 B/P (MAP) 152/79 (103) Pulse Ox 100 O2 Delivery Room Air (HOLA MAHMOOD MD) Vital Signs Capillary Refill : Less Than 3 Seconds (REMA PALOMO APRN) Height/Weight/BMI Height: 5'7" Weight: 230lbs. oz. 104.729052sy; 35.00 BMI Method:Stated General Appearance: WD/WN, mild distress Neck: supple, normal inspection Respiratory: chest non-tender, lungs clear, normal breath sounds, no respiratory distress, no accessory muscle use Cardiovascular: regular rate, rhythm, no edema, no gallop, no JVD, no murmur Gastrointestinal: soft, no organomegaly, no pulsatile mass, abnormal bowel sounds (hypoactive), tenderness Extremities: normal inspection Neurologic/Psychiatric: alert, normal mood/affect, oriented x 3 Skin: normal color, warm/dry (REMA PALOMO APRN) Progress/Results/Core Measures Results/Orders Lab Results Laboratory Tests Test 04/15/22 16:59 04/15/22 18:00 Range/Units Urine Color YELLOW Urine Clarity CLEAR Urine pH 7.0 5-9 Urine Specific [place] 1.015 L 1.016-1.022 Urine Protein NEGATIVE NEGATIVE Urine Glucose (UA) NEGATIVE NEGATIVE Urine Ketones NEGATIVE NEGATIVE Urine Nitrite NEGATIVE NEGATIVE Urine Bilirubin NEGATIVE NEGATIVE Urine Urobilinogen 1.0 < = 1.0 MG/DL Urine Leukocyte Esterase NEGATIVE NEGATIVE Urine RBC (Auto) NEGATIVE NEGATIVE Urine RBC NONE /HPF Urine WBC 0-2 /HPF Urine Squamous Epithelial Cells 0-2 /HPF Urine Renal Epithelial Cells NONE /HPF Urine Crystals NONE /LPF Urine Bacteria NEGATIVE /HPF Urine Casts NONE /LPF Urine Mucus SMALL H /LPF Urine Culture Indicated NO White Blood Count 9.6 4.3-11.0 10^3/uL Red Blood Count 4.46 3.80-5.11 10^6/uL Hemoglobin 13.3 11.5-16.0 g/dL Hematocrit 41 35-52 % Mean Corpuscular Volume 92 80-99 fL Mean Corpuscular Hemoglobin 30 25-34 pg Mean Corpuscular Hemoglobin Concent 32 32-36 g/dL Red Cell Distribution Width 13.3 10.0-14.5 % Platelet Count 272 130-400 10^3/uL Mean Platelet Volume 10.9 9.0-12.2 fL Immature Granulocyte % (Auto) 0 % Neutrophils (%) (Auto) 73 42-75 % Lymphocytes (%) (Auto) 19 12-44 % Monocytes (%) (Auto) 6 0-12 % Eosinophils (%) (Auto) 1 0-10 % Basophils (%) (Auto) 1 0-10 % Neutrophils # (Auto) 7.0 1.8-7.8 10^3/uL Lymphocytes # (Auto) 1.9 1.0-4.0 10^3/uL Monocytes # (Auto) 0.6 0.0-1.0 10^3/uL Eosinophils # (Auto) 0.1 0.0-0.3 10^3/uL Basophils # (Auto) 0.1 0.0-0.1 10^3/uL Immature Granulocyte # (Auto) 0.0 0.0-0.1 10^3/uL Sodium Level 138 135-145 MMOL/L Potassium Level 4.0 3.6-5.0 MMOL/L Chloride Level 102 98-107 MMOL/L Carbon Dioxide Level 28 21-32 MMOL/L Anion Gap 8 5-14 MMOL/L Blood Urea Nitrogen 10 7-18 MG/DL Creatinine 0.73 0.60-1.30 MG/DL Estimat Glomerular Filtration Rate 98 BUN/Creatinine Ratio 14 Glucose Level 94 70-105 MG/DL Calcium Level 9.0 8.5-10.1 MG/DL Corrected Calcium 9.3 8.5-10.1 MG/DL Total Bilirubin 0.4 0.1-1.0 MG/DL Aspartate Amino Transf (AST/SGOT) 21 5-34 U/L Alanine Aminotransferase (ALT/SGPT) 21 0-55 U/L Alkaline Phosphatase 99 40-136 U/L C-Reactive Protein High Sensitivity 0.99 H 0.00-0.50 MG/DL Total Protein 7.3 6.4-8.2 GM/DL Albumin 3.6 3.2-4.5 GM/DL Lipase 6 L 8-78 U/L (HOLA MAHMOOD MD) Vital Signs/I&O 04/15/22 04/15/22 16:20 20:08 Pulse 86 85 Resp 17 18 B/P (MAP) 152/79 (103) 145/100 Pulse Ox 100 98 O2 Delivery Room Air (HOLA MAHMOOD MD) Blood Pressure Mean: 103 Progress Progress Note : Progress Note Patient presents with moderate periumbilical abdominal pain. Will obtain urinalysis, CMP, CBC, CRP, and CT abdomen pelvis. Medications ordered for comfort. (REMA PALOMO APRN) CT Results/Progress Notes Date of Exam:04/15/22 CT ABDOMEN/PELVIS W CT ABDOMEN/PELVIS W TECHNIQUE: Multiple contiguous axial images were obtained through the abdomen and pelvis after administration of intravenous contrast. All CT scans use one or more of the following dose optimizing techniques: automated exposure control, MA and/or KvP adjustment based on patient size and exam type or iterative reconstruction. INDICATION: Abdominal pain COMPARISON: 05/26/2021 FINDINGS: Lower chest: The lung bases are clear. No pericardial or pleural effusion. Peritoneum: No free intraperitoneal air or fluid. Liver and biliary system: The liver is normal. Cholecystectomy with unchanged mild dilation of the common bile duct due to reservoir effect. Spleen and Pancreas: Spleen is normal. The pancreas enhances normally without mass lesion or peripancreatic inflammatory changes. Adrenals: Normal. tract: The kidneys enhance normally without suspicious mass or obstruction. Urinary bladder is distended without wall thickening. Uterus is normal. No adnexal mass. GI tract: Moderate sized sliding-type hiatal hernia. No distention of the stomach. No bowel obstruction. Large amount of stool is present within the colon. No pericolonic inflammatory change to indicate colitis or diverticulitis. There is diverticulosis within the descending and sigmoid colon. Normal appendix. Vasculature and Lymph nodes: Normal caliber aorta. No abdominal or pelvic lymphadenopathy. Musculoskeletal: No concerning osseous lesion. Fat-containing umbilical and infraumbilical hernias. Rotatory levoscoliosis of the lumbar spine. IMPRESSION: 1. No acute obstructive or inflammatory process. 2. Large volume of colonic stool. 3. Fat-containing umbilical and infraumbilical hernias are unchanged and have no features of strangulation. Dictated by: Dictated on workstation # [id number] Dict: 04/15/[id number] Trans: 04/15/221932 [facility] [id number] Interpreted by: VALENTIN HARPER MD Electronically signed by: VALENTIN HARPER MD 04/15/221932 (REMA PALOMO APRN) Departure Impression Primary Impression: Abdominal pain Qualified Codes: R10.33 - Periumbilical pain Additional Impression: Umbilical hernia Qualified Codes: K42.9 - Umbilical hernia without obstruction or gangrene Disposition: 01 HOME, SELF-CARE Condition: Stable Departure-Patient Inst. Decision time for Depature: 19:48 (REMA PALOMO APRN) Referrals: MONSERRAT AMAYA MD (PCP) Primary Care Physician JACK ASENCIO (Family) Primary Care Physician Patient Instructions: Constipation, Adult (DC), Severe Abdominal Pain, Adult (DC) Add. Discharge Instructions: Follow up with primary care provider this week. All discharge instructions reviewed with patient and/or family. Voiced understanding. PHYSICIAN ATTESTATION NOTE: I was present in the ER while GRINDER OPERATOR [employer]AT[employer] / PA saw the patient, but I was not involved in the care, exam, or management of the patient. (HOLA MAHMOOD MD) REMA PALOMO APRN Apr 15, 2022 17:23 HOLA MAHMOOD MD Apr 17, 2022 09:45
[2022-04-15 18:20] LABS: BASOPHILS # (AUTO) 0.1 10^3/uL (0.0-0.1); BASOPHILS % (AUTO) 1 % (0-10); EOSINOPHILS # (AUTO) 0.1 10^3/uL (0.0-0.3); EOSINOPHILS % (AUTO) 1 % (0-10); HEMATOCRIT 41 % (35-52); HEMOGLOBIN 13.3 g/dL (11.5-16.0); LYMPHOCYTES # (AUTO) 1.9 10^3/uL (1.0-4.0); LYMPHOCYTES % (AUTO) 19 % (12-44); MEAN CORPUSCULAR HEMOGLOBIN 30 pg (25-34); MEAN CORPUSCULAR HGB CONC 32 g/dL (32-36); MEAN CORPUSCULAR VOLUME 92 fL (80-99); MEAN PLATELET VOLUME 10.9 fL (9.0-12.2); MONOCYTES # (AUTO) 0.6 10^3/uL (0.0-1.0); MONOCYTES % (AUTO) 6 % (0-12); NEUTROPHILS % (AUTO) 73 % (42-75); PLATELET COUNT 272 10^3/uL (130-400); WHITE BLOOD COUNT 9.6 10^3/uL (4.3-11.0)
[2022-04-15 18:28] LABS: ALBUMIN 3.6 GM/DL (3.2-4.5)
[2022-04-15] MEDS ORDERED: HOLD METFORMIN - RECEIVED CONTRAST 20 ML VIAL IV SCH (18:30)
[2022-04-15] MEDS ORDERED: IOHEXOL 350 MG/ML 100 ML (OMNIPAQUE 350) VIAL IV ONE (18:30)
[2022-04-15] MEDS ORDERED: NS 100 ML (IVPB) BAG IV ONE (18:30)
[2022-04-15 18:31] LABS: TOTAL PROTEIN 7.3 GM/DL (6.4-8.2)
[2022-04-15 18:32] LABS: BILIRUBIN,TOTAL 0.4 MG/DL (0.1-1.0)
[2022-04-15 18:34] LABS: CREATININE SERUM 0.73 MG/DL (0.60-1.30)
--- NOTE | 2022-04-15 18:47 | Diagnostic Imaging Report ---
CT ABDOMEN/PELVIS W TECHNIQUE: Multiple contiguous axial images were obtained through the abdomen and pelvis after administration of intravenous contrast. All CT scans use one or more of the following dose optimizing techniques: automated exposure control, MA and/or KvP adjustment based on patient size and exam type or iterative reconstruction. INDICATION: Abdominal pain COMPARISON: 05/26/2021 FINDINGS: Lower chest: The lung bases are clear. No pericardial or pleural effusion. Peritoneum: No free intraperitoneal air or fluid. Liver and biliary system: The liver is normal. Cholecystectomy with unchanged mild dilation of the common bile duct due to reservoir effect. Spleen and Pancreas: Spleen is normal. The pancreas enhances normally without mass lesion or peripancreatic inflammatory changes. Adrenals: Normal. tract: The kidneys enhance normally without suspicious mass or obstruction. Urinary bladder is distended without wall thickening. Uterus is normal. No adnexal mass. GI tract: Moderate sized sliding-type hiatal hernia. No distention of the stomach. No bowel obstruction. Large amount of stool is present within the colon. No pericolonic inflammatory change to indicate colitis or diverticulitis. There is diverticulosis within the descending and sigmoid colon. Normal appendix. Vasculature and Lymph nodes: Normal caliber aorta. No abdominal or pelvic lymphadenopathy. Musculoskeletal: No concerning osseous lesion. Fat-containing umbilical and infraumbilical hernias. Rotatory levoscoliosis of the lumbar spine. IMPRESSION: 1. No acute obstructive or inflammatory process. 2. Large volume of colonic stool. 3. Fat-containing umbilical and infraumbilical hernias are unchanged and have no features of strangulation. Dictated by: Dictated on workstation # [id number]
[2022-04-15] MEDS ORDERED: ANTACID SUSP 30 ML UDC (MYLANTA) PO ONE (19:30)
[2022-04-15] MEDS ORDERED: LIDOCAINE 2% VISCOUS 15 ML UDC PO ONE (19:30)
[2022-04-15 20:08] VITALS: BP 145/100
== END 2022-04-15 20:08 | disposition home or self-care (01) ==
LOC: EDUNIT# 16:14 → ER 16:16
DX: K42.9 Umbilical hernia without obstruction or gangrene (principal); Z90.49 Acquired absence of other specified parts of digestive tract
CPT/HCPCS: 36415; 74177; 80053; 81000; 83690; 85025; 86141; 99283

== ENCOUNTER → 2022-04-17 | Outpatient (CLI) | payer MEDICARE, MEDICAID ==
[2022-04-17 10:19] LABS: PROTHROMBIN TIME PATIENT 13.7 SEC (12.2-14.7)
--- NOTE | 2022-04-17 17:16 | Diagnostic Imaging Report ---
INDICATION: Hepatitis C. PROCEDURE: Ultrasound abdomen complete. TECHNIQUE: Multiple real-time grayscale images were obtained of the abdomen in various projections. FINDINGS: The liver shows no discrete lesion. Bile ducts are not dilated. Common duct is not well seen. Liver measures 17 cm. Gallbladder is absent. The pancreas is obscured by gas. Spleen measures 9 cm. Aorta measures 2.2 cm. IVC is not dilated. There is normal hepatopedal flow in the portal vein with Doppler sampling. Right kidney measures 9.0 x 4.3 x 3.7 cm. Left kidney measures 8.6 x 5.1 x 4.2 cm. There is no hydronephrosis. No masses or calculi. There is no ascites. Negative Lindo sign. IMPRESSION: Somewhat limited exam with no acute abnormalities demonstrated. Dictated by: Dictated on workstation # [id number]
== END ==
LOC: RAD 09:08
PROVIDERS: ATTEND Family Medicine
DX: B19.20 Unspecified viral hepatitis C without hepatic coma (principal)
CPT/HCPCS: 36415; 76700; 85610

== ENCOUNTER 2022-10-19 17:27 | Emergency (ER) | payer MEDICARE, MEDICAID ==
[~2022-10-19] VITALS: Ht 170 cm; Wt 103.0 kg
[~2022-10-19 17:27] MED LIST changes: +POTA-330 PO; -POTA-51 PO
--- NOTE | 2022-10-19 18:43 | ED EENT ---
History of Present Illness General Chief Complaint: Facial Problems Stated Complaint: FACIAL INJ Nursing Triage Note: PT AMB TO RM 7 PT STATES TRIPPED AND HIT FACE ON FLOOR, DENIES LOC. PT HAS SWELLING AND BRUISING AROUND EYES AND NOSE. (NINI ESTEBAN MD) History of Present Illness Date Seen by Provider: Oct 19, 2022 Time Seen by Provider: 18:30 Initial Comments Patient is a 56-year-old female who presents to the emergency room with a chief complaint of facial injury after a fall. Patient was walking around a stool, her foot got caught on the stool and she fell face down onto a tile floor. She hit the left side of her forehead, was wearing glasses and sustained a laceration to the left medial canthus infraorbital region. She does not remember her last tetanus shot. She has a mild headache, no nausea. Denies neck pain. No other complaints of injury to the upper extremities or lower extremities. She has a history of chronic pain. Is not on blood thinners. No loss of consciousness is reported. Complains of nose bleed from both sides. Timing/Duration: abrupt Severity: moderate Location: nose, facial (left eye) Prearrival Treatment: no prearrival treatment Associated Symptoms: denies symptoms (NINI ESTEBAN MD) Allergies and Home Medications Allergies Coded Allergies: No Known Drug Allergies (Unverified , 05/26/21) Patient Home Medication List Home Medication List Reviewed: Yes (NINI ESTEBAN MD) Calcium Carbonate (Calcium Carbonate) 300 Mg Tab.chew, 300-600 MG PO UD PRN for INDIGESTION, (Reported) Entered as Reported by: ERA MCCRACKEN on 05/28/21 0855 Cefdinir (Cefdinir) 300 Mg Capsule, 300 MG PO BID Prescribed by: CAROLE AGOSTO on 05/28/21 1313 Cyclobenzaprine HCl (Cyclobenzaprine HCl) 10 Mg Tablet, 10 MG PO TID PRN for MUSCLE SPASMS, (Reported) Entered as Reported by: MUMTAZ JACK on 02/21/21 0739 Gabapentin (Neurontin) 300 Mg Capsule, 300 MG PO BID, (Reported) Entered as Reported by: ERA MCCRACKEN on 05/28/21 0855 Ibuprofen (Ibuprofen) 800 Mg Tablet, 800 MG PO Q8H PRN for PAIN-MILD (1-4), (Reported) Entered as Reported by: MUMTAZ JACK on 02/21/21738 Lisinopril (Lisinopril) 10 Mg Tablet, 10 MG PO DAILY, (Reported) Entered as Reported by: MUMTAZ JACK on 02/21/21738 Metronidazole (Metronidazole) 500 Mg Tablet, 500 MG PO TID Prescribed by: CAROLE AGOSTO on 05/28/21 1313 Multivitamin (Multivitamin) 1 Each Tablet, 1 EACH PO DAILY, (Reported) Entered as Reported by: MUMTAZ JACK on 02/21/21738 Pantoprazole Sodium (Pantoprazole Sodium) 40 Mg Tablet.dr, 40 MG PO DAILY, (Reported) Entered as Reported by: MUMTAZ JACK on 02/21/21738 Sucralfate (Sucralfate) 1 Gm Tablet, 1 GM PO ACHS PRN for GI UPSET, (Reported) Entered as Reported by: ERA MCCRACKEN on 05/28/21 0855 Tramadol HCl (Tramadol HCl) 50 Mg Tablet, 50-100 MG PO QID PRN for PAIN-SEVERE (8-10), (Reported) Entered as Reported by: MUMTAZ JACK on 02/21/21738 Review of Systems Review of Systems Constitutional: see HPI Eyes: Drainage (NINI ETSEBAN MD) Past Xpesrcz-Sjzngp-Bytxig Hx Patient Social History Tobacco Use?: No Substance use?: No Alcohol Use?: No Pt feels they are or have been: No (NNII ESTEBAN MD) Immunizations Up To Date Tetanus Booster (TDap): Unknown First/Initial COVID19 Vaccinat: NO Second COVID19 Vaccination Fabian: NO Third COVID19 Vaccination Date: NO (NINI ESTEBAN MD) Seasonal Allergies Seasonal Allergies: No (NINI ESTEBAN MD) Past Medical History Surgery/Hospitalization HX: BACK PAIN, HTN, L TOTAL KNEE REPLACEMENT, X2 GB Surgeries: Yes (HEART CATH WITHOUT INTERVENTION, ARTHROSCOPY LEFT KNEE) Section, Gallbladder, Orthopedic Respiratory: No Cardiac: Yes Hypertension Neurological: No Reproductive Disorders: No Genitourinary: Yes (OVER-ACTIVE BLADDER) Gastrointestinal: Yes (INFLAMMATORY BOWEL) Hiatal Hernia Musculoskeletal: Yes (KNEE REPLACEMENT-LEFT) Scoliosis Endocrine: No HEENT: No Cancer: No Psychosocial: No Anxiety Integumentary: No Blood Disorders: No Adverse Reaction/Blood Tranf: No (NINI ESTEBAN MD) Family Medical History Heart Disease (NINI ESTEBAN MD) Physical Exam Vital Signs Vital Signs - First Documented 10/19/22 17:40 Temp 36.8 Pulse 86 Resp 18 B/P (MAP) 129/100 (110) Pulse Ox 100 (SPENCER ALMODOVAR APRN) Height, Weight, BMI Height: 5'7" Weight: 230lbs. oz. 104.857526as; 35.00 BMI Method:Stated General Appearance: WD/WN, no apparent distress Eyes: left eye other (left eye (from laceration) approx 1.5cm laceration from just inferior to medial canthus to lower lid. minimal bleeding noted. tender to palpation. EOMI); bilateral eye PERRL, bilateral eye EOMI Ears: left ear other (small crescent of blood/hemotympanum left ear) Nose: other (swelling - dried blood both nares; no septal hematoma noted) Mouth/Throat: normal mouth inspection Neck: non-tender, full range of motion, supple, normal inspection Cardiovascular: regular rate, rhythm Respiratory: lungs clear, normal breath sounds, no respiratory distress, no accessory muscle use Gastrointestinal: normal bowel sounds, non tender, soft, other (obese) Neurologic/Psychiatric: alert, normal mood/affect, oriented x 3 Skin: normal color, warm/dry, other (see above left eye) (NINI ESTEBAN MD) Procedures/Interventions Wound Location: Face Wound Length (cm): 1.5 Wound's Depth, Shape: linear, sub Q Wound Explored: clean Irrigated w/ Saline (ccs): 30 Anesthesia: Lidocaine w/ Epi Suture: Chromic Suture Size: 5-0 Number of Sutures: 5 Layer Closure?: 1 Number Deep Layer Sutures: 0 (SPENCER ALMODOVAR APRN) Progress/Results/Core Measures Results/Orders Medications Given in ED Current Medications Medications Dose Ordered Sig/Laurel Route Start Time Stop Time Status Last Admin Dose Admin Acetaminophen/ Hydrocodone Bitart 1 ea ONCE ONCE PO 10/19/22 18:45 10/19/22 18:46 DC 10/19/22 18:45 1 EA Diphtheria/ Tetanus/Acell Pertussis 0.5 ml ONCE ONCE IM 10/19/22 18:45 10/19/22 18:46 DC 10/19/22 18:46 0.5 ML Tetracaine/ Epinephrine/ Lidocaine 3 ml ONCE ONCE TOP 10/19/22 18:45 10/19/22 18:46 DC 10/19/22 18:48 3 ML (SPENCER ALMODOVAR ALUMINUM WELDER) Vital Signs/I&O 10/19/22 17:40 Temp 36.8 Pulse 86 Resp 18 B/P (MAP) 129/100 (110) Pulse Ox 100 (SPENCER ALMODOVAR ALUMINUM WELDER) 2 Blood Pressure Mean: 110 Progress Progress Note : Time: 19:45 Progress Note Patient seen and examined by me. Evaluation today includes physical exam, CT head noncontrast. Pertinent physical exam findings well-developed well- nourished female no acute distress, 1-1/2 cm superficial flap-like laceration to the left medial eye inferiorly. Minimal bleeding. She has forehead contusion over the left eyebrow. Moderate swelling. Trace hemotympanum left ear. HEENT exam is otherwise unremarkable. No other bony tenderness to the face. No cervical spine tenderness. Intact range of motion. Heart is regular, lungs are clear. No focal neurologic deficits. Differential diagnosis based on history and physical exam, cerebral contusion/subdural hematoma CT scan read by radiologist as no intracranial abnormalities. Laceration was anesthetized with let gel. Spencer Almodovar NP closed the laceration with 5 superficial interrupted 5-0 Chromic Gut sutures. Patient's tetanus shot was updated. She was given hydrocodone for pain. Return precautions were provided in both verbal and written format. All questions were sought and answered. Patient was improved at discharge. (NINI ESTEBAN MD) Diagnostic Imaging Diagonstic Imaging: CT Comments [facility], [place] NAME: INES [facility] REC#: [id number] PT STATUS: REG ER : 1965 PHYSICIAN: NINI ESTEBAN MD ADMIT DATE: 10/19/22/ER Signed Date of Exam:10/19/22 CT HEAD WO PROCEDURE: CT head without contrast. TECHNIQUE: Multiple contiguous axial images were obtained through the brain without the use of intravenous contrast. Auto Exposure Controls were utilized during the CT exam to meet ALARA standards for radiation dose reduction. INDICATION: Fall with head injury. FINDINGS: The ventricles and sulci are within normal limits. There is no hydrocephalus or cerebral edema. There is no midline shift or mass effect. There is no intracranial mass, hemorrhage or extra-axial fluid collection. The visualized paranasal sinuses and mastoid air cells are clear. There is no regional area of decreased attenuation appreciated to suggest an acute CVA. IMPRESSION: No acute intracranial abnormality. Dictated by: Dictated on workstation # [id number] Dict: 10/19/221851 Trans: 10/19/221920 [facility] [id number] Interpreted by: BRY GOMEZ MD Electronically signed by: BRY GOMEZ MD 10/19/221920 (NINI ESTEBAN MD) Departure Impression Primary Impression: Facial laceration Qualified Codes: S01.81XA - Laceration without foreign body of other part of head, initial encounter Additional Impressions: Nasal bone fracture Qualified Codes: S02.2XXA - Fracture of nasal bones, initial encounter for closed fracture Head injury due to trauma Qualified Codes: S09.90XA - Unspecified injury of head, initial encounter Disposition: 01 HOME, SELF-CARE Condition: Stable Departure-Patient Inst. Decision time for Depature: 19:51 (NINI ESTEBAN MD) Referrals: MONSERRAT AMAYA MD (PCP/Family) Primary Care Physician Patient Instructions: Head Injury in Adults (DC), Laceration Repair With Stitches ED Add. Discharge Instructions: You can continue your daily pain medications as prescribed by your primary care doctor. Wash the area of injury twice a day with a mild soap and water. You can put a little triple antibiotic ointment on the stitches twice a day for 2-3 days. Expect to see fairly significant bruising on your face on the left over the next week. Continue to use an ice pack to your face off and on multiple times a day. Call your primary care doctor's office on Friday for a follow up appointment. The stitches will dissolve - they do not need to be remonved. Return to the Emergency Department for any new concerning symptoms - severe sudden headache, repeated vomiting or any other emergent concerns. Copy Copies To 1: MONSERRAT AMAYA MD, KATHRYN M MD Oct 19, 2022 18:43 SPENCER ALMODOVAR APRN Oct 19, 2022 19:44
[2022-10-19] MEDS ORDERED: TETANUS,DIPTH,PERTUSS P/F (BOOSTRIX) 0.5 ML VIAL IM ONE (18:45)
[2022-10-19] MEDS ORDERED: L.E.T. SOLUTION 3 ML SYR TOP ONE (18:45)
[2022-10-19] MEDS ORDERED: HYDROcodone/APAP 7.5 MG/325 MG (LORTAB, LORCET PLUS) TABLET PO ONE (18:45)
--- NOTE | 2022-10-19 18:55 | Diagnostic Imaging Report ---
PROCEDURE: CT head without contrast. TECHNIQUE: Multiple contiguous axial images were obtained through the brain without the use of intravenous contrast. Auto Exposure Controls were utilized during the CT exam to meet ALARA standards for radiation dose reduction. INDICATION: Fall with head injury. FINDINGS: The ventricles and sulci are within normal limits. There is no hydrocephalus or cerebral edema. There is no midline shift or mass effect. There is no intracranial mass, hemorrhage or extra-axial fluid collection. The visualized paranasal sinuses and mastoid air cells are clear. There is no regional area of decreased attenuation appreciated to suggest an acute CVA. IMPRESSION: No acute intracranial abnormality. Dictated by: Dictated on workstation # [id number]
[2022-10-19 20:07] VITALS: BP 116/89
== END 2022-10-19 20:07 | disposition home or self-care (01) ==
LOC: EDUNIT# 17:27 → ER 17:29
DX: S09.90XA Unspecified injury of head, initial encounter (principal); S02.2XXA Fracture of nasal bones, initial encounter for closed fracture; S01.112A Laceration without foreign body of left eyelid and periocular area, initial encounter; Z28.310 Unvaccinated for COVID-19; Z23 Encounter for immunization; W01.198A Fall on same level from slipping, tripping and stumbling with subsequent striking against other object, initial encounter; Y93.01 Activity, walking, marching and hiking
CPT/HCPCS: 70450; 90715